=== PATIENT | male | born 1955 | race Caucasian/White ===

== ENCOUNTER 2018-09-12 15:34 | Inpatient (IN) ==
--- NOTE | 2018-09-12 16:52 | Emergency Department Note ---
Disposition Clinical Impression: Acute exacerbation of chronic obstructive airways disease Community acquired pneumonia Qualifiers: Laterality: right Lung location: lower lobe of lung Qualified Code(s): J18.1 - Lobar pneumonia, unspecified organism Disposition: Home, Self-Care Condition: Fair SOB HPI - General Chief Complaint: ED Shortness of Breath/Dyspnea Stated Complaint: difficulty in breathing Source: patient, EMS Mode of arrival: EMS Limitations: no limitations Nursing Notes Reviewed: Yes Vital Signs Reviewed: Yes - History of Present Illness Patient presents to the ED via EMS complaining of shortness of breath. States he has been short of breath for a few hours. He denies any cough or chest pain. No abdominal pain, nausea, vomiting or diarrhea. No fever or chills that he is aware of. He is a diabetic and states his sugars been running in the 200s. He wears 2 L of oxygen at home which she has been on for 3 years. He has a history of COPD along with CHF. He quit smoking 3 weeks ago. States he was smoking a half a pack per day since he was a teen. He denies any recent travel or sick contacts. States he has been using his Spiriva. He did not use his albuterol today. EMS gave 1 nebulizer treatment and one dose of Solu-Medrol prior to arrival. - Related Data Home Medications Medication Instructions Recorded Confirmed Carvedilol 3.125 mg PO BID 12/22/15 09/12/18 Gabapentin [Gralise] 600 mg PO BID 12/22/15 09/12/18 [place] Aspartate [Lithate] 300 mg PO BID 12/22/15 09/12/18 Morphine Sulfate SR (12 HR) [MS 60 mg PO Q12HR 12/22/15 09/12/18 Contin] Ranitidine Oral Soln [Zantac] 150 mg PO BID 12/22/15 09/12/18 Albuterol Sulfate [Proair Hfa] 1 puff IH BID 09/12/18 09/12/18 Escitalopram [Lexapro] 5 mg PO DAILY 09/12/18 09/12/18 Insulin ASPART [NovoLOG] 0 unit SQ TIDWM 09/12/18 09/12/18 Morphine Immed Rel [Morphine 30 mg PO BID 09/12/18 09/12/18 Sulfate] Previous Rx's Medication Instructions Recorded Tiotropium [place] [Spiriva 4 gm IH DAILY #1 mist.inhal 12/22/15 Respimat] Allergies Allergy/AdvReac Type Severity Reaction Status Date / Time No Known Allergies Allergy Verified 09/12/18 15:35 Constitutional: Denies: fever, chills, weakness, weight change Eyes: Denies: eye pain, eye discharge, vision change ENT ED: Denies: ear pain, throat pain, dental pain, hearing loss, epistaxis, congestion, dysphagia Cardiovascular: Denies: chest pain, palpitations, dyspnea on exertion, edema, syncope Respiratory: Reports: dyspnea. Denies: cough, wheezes, hemoptysis, stridor Gastrointestinal: Denies: abdominal pain, nausea, vomiting, diarrhea, constipation, hematemesis, melena, hematochezia Genitourinary: Denies: urgency, dysuria, frequency, hematuria Musculoskeletal: Denies: back pain, neck pain, arthralgia, myalgia Integumentary: Denies: rash, abrasion, lesions Neurological: Denies: headache, weakness, numbness, paresthesias, confusion, abnormal gait, vertigo Psychiatric: Denies: anxiety, depression, suicidal thoughts, homicidal thoughts, auditory hallucinations, visual hallucinations Endocrine: Denies: fatigue Hematological/Lymphatic: Denies: easy bleeding, easy bruising Allergic/Immunologic: Denies: facial swelling, urticaria Past Medical History - Past Medical History Medical history: Reports: asthma, atrial fibrillation, COPD, CVA, diabetes Surgical history: Reports: orthopedic, other (Left shoulder), other (Thorax left, intracranial hemorrhage) Psychiatric history: Reports: bipolar - Social History Smoking Status: Former smoker Smokeless Tobacco Status: No Alcohol use: Reports: none Drug use: Reports: none Physical Exam - General Limitations: no limitations General appearance: alert, in no apparent distress - Head Head exam: atraumatic, normocephalic, normal inspection - Eye Eye exam: Present: normal appearance, PERRL, EOMI - ENT ENT exam: normal exam, normal oropharynx, mucous membranes moist - Neck Neck exam: Present: normal inspection, full ROM, trachea midline - Chest Chest inspection: Present: normal inspection, symmetric chest wall rise - Respiratory Respiratory exam: Present: wheezes. Absent: respiratory distress - Expanded Respiratory Exam Location: wheezes: Left, Right, Upper, Lower (scattered) - Cardiovascular Cardiovascular exam: Present: regular rate, normal rhythm, normal heart sounds - Abdominal Exam Abdominal exam: Present: soft, Non-Tender. Absent: tenderness, distention, guarding, rebound, rigidity - Extremities Exam Extremities exam: Present: normal inspection, full ROM. Absent: tenderness, pedal edema - Back Exam Back exam: Present: normal inspection, full ROM. Absent: tenderness - Neurological Exam Neurological exam: Present: alert, oriented X3 - Psychiatric Psychiatric exam: Present: normal affect, normal mood - Skin Skin exam: Present: warm, dry, intact, normal color Course Course Narrative: Patient presents to the ED complaining of shortness of breath for a few hours with slight improvement after receiving steroids and nebulizer treatment by EMS. On arrival oxygen saturations 94% on his usual 2 L. Temperature is 99.1. Patient is frequently nodding off. Will check ABG for evidence of CO2 retention versus possible side effect of his narcotic pain medication. Will obtain chest x-ray and lab work. We will give an additional breathing treatment. - Reevaluation(s) Reevaluation #1: EKG did not show any ischemic changes. Chest x-ray shows nodularities in the right lung base that could represent infection. He does not have elevated white count other he does have elevated neutrophils and bands. BNP is slightly elevated at 146. Troponin and lactic acid are both normal. ABG shows a normal pH and normal PCO2 but PO2 is low at 58. Oxygen saturations remain in the mid 90s on 2 L. Discussed with patient recommendation for admission for IV antibiotics and he is in agreement. I spoke to the hospitalist on-call, Dr. Rodriguez who agreed to accept patient. Vital Signs Temperature 99.1 F 09/12/18 15:43 Pulse Rate 114 09/12/18 15:43 Respiratory Rate 28 09/12/18 15:43 Blood Pressure 108/71 09/12/18 15:43 O2 Sat by Pulse Oximetry 92 09/12/18 15:43 Temperature 97.7 F 09/13/18 03:59 Pulse Rate 80 09/13/18 03:59 Respiratory Rate 18 09/13/18 03:59 Blood Pressure 118/69 09/13/18 03:59 O2 Sat by Pulse Oximetry 99 09/13/18 03:59 Oxygen Delivery Oxygen Delivery Nasal Cannula Shortness of Breath/Dyspnea - Differential Diagnosis Likely: acute exacerbation of chronic obstructive airways disease, congestive heart failure, pneumonia - Medical Records Medical records reviewed: Yes I reviewed the patient's medical records. - Lab Data Lab results reviewed: Yes I reviewed the patient's lab results. Result diagrams: 09/12/18 17:25 09/12/18 17:25 Lab Results 09/12/18 09/12/18 09/12/18 Range/Units 17:25 17:25 17:25 WBC 10.6 (4.3-11.1) K/mcL RBC 4.53 (4.19-5.50) M/mcL Hgb 13.6 (12.9-16.9) g/dL Hct 43.4 (37.5-50.1) % MCV 95.8 (83.0-100.0) fL MCH 30.0 (28.0-33.3) pg MCHC 31.3 L (31.6-35.5) g/dL RDW 13.2 (11.5-14.5) % Plt Count 156 (140-400) K/mcL MPV 9.5 (9.4-12.4) fL Seg Neutrophils % 62.0 % Band Neutrophils % 34.0 H (0-4) % Lymphocytes % Test Not Performed Metamyelocytes % 4.0 H (0) % Neutrophils # 10.2 H (1.6-8.9) K/mcL Lymphocytes # WATER PLANT MAINTENANCE MECHANIC Platelet Estimate Normal (Normal) Sample Site ABG pH (7.32-7.45) pH Units ABG pCO2 (35-45) mmHg ABG pO2 (85-104) mmHg ABG HCO3 (21-27) mEq/L ABG Total CO2 (20-26) mEq/L ABG O2 Saturation (95-98) % ABG Base Excess (-2 to 3) mEq/L Ishan Test O2 Delivery Device Inspired O2 (1-15=lpm [id number]=%) Sodium 139 (136-145) mEq/L Potassium 3.3 L (3.5-5.1) mEq/L Chloride 106 (98-107) mEq/L Carbon Dioxide 27 (23-29) mEq/L BUN 15 (8-23) mg/dL Creatinine 0.77 (0.70-1.30) mg/dL Est GFR ( Amer) > 60 (> 60) Est GFR (Non-Af Amer) > 60 (> 60) BUN/Creatinine Ratio 19 (6-26) Glucose 185 H (70-105) mg/dL Calculated Osmolality 294 (280-300) Lactic Acid 1.9 (0.5-2.2) mmol/L Calcium 8.8 (8.6-10.3) mg/dL Troponin I < 0.03 (< 0.04) ng/mL B-Natriuretic Peptide (Less than 100) pg/mL 09/12/18 09/12/18 Range/Units 17:25 17:37 WBC (4.3-11.1) K/mcL RBC (4.19-5.50) M/mcL Hgb (12.9-16.9) g/dL Hct (37.5-50.1) % MCV (83.0-100.0) fL MCH (28.0-33.3) pg MCHC (31.6-35.5) g/dL RDW (11.5-14.5) % Plt Count (140-400) K/mcL MPV (9.4-12.4) fL Seg Neutrophils % % Band Neutrophils % (0-4) % Lymphocytes % Metamyelocytes % (0) % Neutrophils # (1.6-8.9) K/mcL Lymphocytes # Platelet Estimate (Normal) Sample Site L Radial ABG pH 7.37 (7.32-7.45) pH Units ABG pCO2 45 (35-45) mmHg ABG pO2 58 L (85-104) mmHg ABG HCO3 26 (21-27) mEq/L ABG Total CO2 27 H (20-26) mEq/L ABG O2 Saturation 89 L (95-98) % ABG Base Excess 0 (-2 to 3) mEq/L Ishan Test Positive O2 Delivery Device Cannula Inspired O2 2.0 (1-15=lpm [id number]=%) Sodium (136-145) mEq/L Potassium (3.5-5.1) mEq/L Chloride (98-107) mEq/L Carbon Dioxide (23-29) mEq/L BUN (8-23) mg/dL Creatinine (0.70-1.30) mg/dL Est GFR ( Amer) (> 60) Est GFR (Non-Af Amer) (> 60) BUN/Creatinine Ratio (6-26) Glucose (70-105) mg/dL Calculated Osmolality (280-300) Lactic Acid (0.5-2.2) mmol/L Calcium (8.6-10.3) mg/dL Troponin I (< 0.04) ng/mL B-Natriuretic Peptide 146 H (Less than 100) pg/mL - Radiology Data Radiology results reviewed: Yes I reviewed the patient's radiology results. ITS Impressions Chest X-Ray 09/12/18 17:02 IMPRESSION: Questionable reticulonodular airspace disease within the right lung base, likely infectious or inflammatory. D/ / Maribell Kamara Cha, MD / Maribell Kamara Cha, MD Interpreting Provider: Maribell Kamara Cha, MD - EKG Data EKG attestation: Yes I reviewed and interpreted this EKG. EKG shows normal: Reports: sinus rhythm Rate: Reports: tachycardia (rate 109) Rhythm: Reports: NSR [place]/QRS: Reports: normal, RBBB When compared to previous EKG there are: previous EKG unavailable Interpretation: Reports: no acute changes
[2018-09-12] MEDS ORDERED: 0.9 % Sodium Chloride 500 ML IVC ONE (17:03)
[2018-09-12] MEDS ORDERED: Ipratropium/Albuterol Neb 3 ML IH ONE (17:13)
[2018-09-12 17:40] LABS: Hematocrit 43.4 % (37.5-50.1); Hemoglobin 13.6 g/dL (12.9-16.9); Mean Corpuscular HGB Conc 31.3 g/dL (31.6-35.5); Mean Corpuscular Volume 95.8 fL (83.0-100.0); Mean Platelet Volume 9.5 fL (9.4-12.4); Platelet Count 156 K/mcL (140-400); Red Blood Count 4.53 M/mcL (4.19-5.50); Red Cell Distribution Width 13.2 % (11.5-14.5)
[2018-09-12 17:40] LABS: ABG Base Excess 0 mEq/L (-2 to 3); ABG HCO3 26 mEq/L (21-27); ABG Oxygen Saturation 89 % (95-98); ABG PCO2 45 mmHg (35-45); ABG PH 7.37 pH Units (7.32-7.45); ABG PO2 58 mmHg (85-104); ABG TCO2 27 mEq/L (20-26)
[2018-09-12 17:55] LABS: BUN/Creatinine Ratio 19 (6-26); Blood Urea Nitrogen 15 mg/dL (8-23); Calcium 8.8 mg/dL (8.6-10.3); Carbon Dioxide 27 mEq/L (23-29); Chloride 106 mEq/L (98-107); Glucose 185 mg/dL (70-105); Osmolality,Calculated 294 (280-300); Potassium 3.3 mEq/L (3.5-5.1); Sodium 139 mEq/L (136-145); eGFR For Non-African Americans > 60 (> 60)
[2018-09-12 17:59] LABS: Troponin I < 0.03 ng/mL (< 0.04)
[2018-09-12] MEDS ORDERED: Azithromycin 500 MG in D5% in Water 250 ML IVPB ONE (18:25)
[2018-09-12] MEDS ORDERED: cefTRIAXone 1,000 MG in 0.9 % Sodium Chloride Mini Bag 100 ML IVPB ONE (18:26)
[2018-09-12 18:56] LABS: Neutrophils # 10.2 K/mcL (1.6-8.9); Platelet Estimate Normal (Normal)
[2018-09-12] MEDS ORDERED: Naloxone 0.4 MG/ML INJ IVP PRN ×2 (19:27→20:33)
[2018-09-12] MEDS ORDERED: D5% in Water 1,000 ML IVC PRN ×2 (19:37→20:33)
[2018-09-12] MEDS ORDERED: *HR* Dextrose 50 % in Water (Vial) 50 ML VIAL IVP PRN ×2 (19:37→20:33)
[2018-09-12] MEDS ORDERED: Dextrose Gel 15 GM/37.5 ML TUBE PO PRN ×4 (19:37→20:33)
[2018-09-12] MEDS: Ipratropium/Albuterol Neb 3 ML IH SCH ×2 (20:02→20:08)
[2018-09-12] MEDS: *HR* Morphine Soln 10 MG/5 ML UDC PO SCH (21:00)
[2018-09-12] MEDS ORDERED: Insulin LISPRO 300 UNITS/3 ML VIAL SQ SCH (21:00)
[2018-09-12] MEDS: Lithium Carbonate 300 MG CAPSULE PO SCH (22:48)
[2018-09-12] MEDS: Gabapentin 300 MG CAPSULE PO SCH (22:48)
[2018-09-12] MEDS: Insulin LISPRO 300 UNITS/3 ML VIAL SQ SCH (22:50)
[2018-09-13] MEDS: Ipratropium/Albuterol Neb 3 ML IH SCH ×3 (01:02→07:48)
[2018-09-13] MEDS: *HR* Morphine Sulfate SR (12 HR) 30 MG TABLET.ER PO SCH ×2 (05:22→17:03)
[2018-09-13] MEDS ORDERED: Insulin LISPRO 300 UNITS/3 ML VIAL SQ SCH (07:30)
[2018-09-13] MEDS: Ondansetron 4 MG/2 ML VIAL IVP PRN ×2 (07:57→17:03)
[2018-09-13] MEDS: Lithium Carbonate 300 MG CAPSULE PO SCH ×2 (07:58→20:28)
[2018-09-13] MEDS: Insulin LISPRO 300 UNITS/3 ML VIAL SQ SCH ×4 (07:59→21:59)
[2018-09-13] MEDS: Gabapentin 300 MG CAPSULE PO SCH ×2 (07:59→20:27)
[2018-09-13] MEDS: Famotidine 20 MG TABLET PO SCH ×3 (08:04→21:10)
[2018-09-13] MEDS ORDERED: TIOTROPIUM BROMIDE 4 GM IH SCH (09:00)
--- NOTE | 2018-09-13 10:49 | Internal Med History&Physical ---
Date of Encounter: 09/13/18 Time of Encounter: 10:00 Assessment and Plan (1) Acute gastroenteritis Current visit: Yes Status: Acute He will be given IV fluids. Antiemetics will be given as needed. (2) Hypokalemia Current visit: Yes Status: Acute Potassium level was 3.3 in emergency room. Supplemental potassium will be given. (3) DM type 2 (diabetes mellitus, type 2) Current visit: Yes Status: Chronic Hemoglobin A1c will be checked in a.m. Qualifiers: Diabetes mellitus terminal operations supervisor insulin use: with fpc use Diabetes mellitus complication status: without complication Qualified Code(s): E11.9 - Type 2 diabetes mellitus without complications; Z79.4 - longterm (current) use of insulin (4) Acute exacerbation of chronic obstructive airways disease Current visit: Yes Status: Acute Possibly superimposed pneumonia. He was given IV Rocephin and Zithromax in emergency room. These will be continued with lactobacillus. Internal Medicine - H&P: HPI Chief complaint: Vomiting, diarrhea, dyspnea Admitted From: Emergency Dept Plans for Post Hospital Care: Home History of present illness: Mr. Heaton is a 63 year old male who came to emergency room stating he had onset of dyspnea, nonproductive cough, and vomiting with diarrhea the previous day. There was no significant pain other than chronic low back pain. He came to emergency room and was evaluated and was felt to have exacerbation of COPD. He was admitted to [facility] floor for ongoing care needs. Past Med Surg Social Fam HX - Past Medical History Medical history: asthma, atrial fibrillation, COPD, CVA, diabetes Psychiatric history: bipolar - Past Surgical History Surgical History: orthopedic, other (Left shoulder), other (Thorax left, in tracranial hemorrhage) Additional surgical history: left shoulder sx. left pneumothorax. brain bleed - Social History Smoking Status: Former smoker Smokeless Tobacco Status: No Alcohol use: none Drug use: none Internal Medicine - H&P: Meds Carvedilol 3.125 mg PO BID 12/22/15 [History] Gabapentin [Gralise] 600 mg PO BID 12/22/15 [History] [place] Aspartate [Lithate] 300 mg PO BID 12/22/15 [History] Morphine Sulfate SR (12 HR) [MS Contin] 60 mg PO Q12HR 12/22/15 [History] Ranitidine Oral Soln [Zantac] 150 mg PO BID 12/22/15 [History] Tiotropium [place] [Spiriva Respimat] 4 gm IH DAILY #1 mist.inhal 12/22/15 [Rx] Albuterol Sulfate [Proair Hfa] 1 puff IH BID 09/12/18 [History] Escitalopram [Lexapro] 5 mg PO DAILY 09/12/18 [History] Insulin ASPART [NovoLOG] 0 unit SQ TIDWM 09/12/18 [History] Morphine Immed Rel [Morphine Sulfate] 30 mg PO BID 09/12/18 [History] Allergy/AdvReac Type Severity Reaction Status Date / Time No Known Allergies Allergy Verified 09/12/18 15:35 All Systems PM: A 10-system review of systems was performed and is negative for pertinent findings except as documented above in the HPI. Review of systems: Gen.: He states his weight has been stable for several months Cardiovascular: He reports history of atrial fibrillation with an ablation procedure approximately 2012 in [place]. He states he generally maintains NSR if he takes medication as prescribed. He denies hypertension [place] heart failure DVT or pulmonary embolus Respiratory: He smoked from age [age]. He claims a diagnosis of COPD and uses supplemental oxygen at home GI: He denies disorders of his liver gallbladder or exocrine pancreas : He denies hematuria dysuria or kidney stones Neurologic: He denies large distribution strokes or seizures. Endocrine: He was diagnosed with DM 2 approximately 2013. He denies thyroid disease or hyperlipidemia Hematology/oncology: He denies blood disorders cancers or anemia Psychiatric: He denies anxiety depression or other mental health issues [place] skeletal: He has DJD but denies gout or other bone joint or muscle disorders. - Constitutional Vitals: Temp Pulse Resp BP Pulse Ox 98.3 F 67 18 131/76 99 09/13/18 07:16 09/13/18 07:16 09/13/18 07:49 09/13/18 07:16 09/13/18 07:49 Exam: Gen.: He is a well-developed well-nourished male resting comfortably in bed who appears in no acute distress HEENT: Head is atraumatic and normocephalic. Eyes: EOMI. There is no scleral icterus. Mouth: Mucosa is moist. Neck: Supple and nontender. There is no thyromegaly or adenopathy noted. Heart: Regular without murmurs gallops or ectopics Lungs: No wheezes or crackles are heard. Abdomen: Soft and nontender. Bowel sounds are diminished. Exam is limited because he is in a seated position in bed. Extremities: There is no cyanosis edema or clubbing noted. Dorsalis pedis and posttibial pulses are trace palpable bilaterally. Neurologic: Mental status: He is is minimally talkative and complaints of nausea. He answers questions with very short answers. Cranial nerves: Smile is symmetric. Forehead wrinkles bilaterally. Tongue protrudes midline. EOMI. Motor: There are no focal deficits to gross exam. No further neurologic testing is attempted. Skin: Warm and dry Internal Med - H&P Results - Labs CBC & Chem 7: 09/12/18 17:25 09/12/18 17:25 Labs: Short CBC 09/12/18 Range/Units 17:25 WBC 10.6 (4.3-11.1) K/mcL Hgb 13.6 (12.9-16.9) g/dL Hct 43.4 (37.5-50.1) % Plt Count 156 (140-400) K/mcL Neutrophils # 10.2 H (1.6-8.9) K/mcL BMP 09/12/18 17:25 Sodium 139 Potassium 3.3 L Chloride 106 Carbon Dioxide 27 BUN 15 Creatinine 0.77 Glucose 185 H Calcium 8.8 Cardiac Enzymes 09/12/18 Range/Units 17:25 Troponin I < 0.03 (< 0.04) ng/mL - ABG Interpretation ABG results: 09/12/18 17:37 ABG pH 7.37 ABG pCO2 45 ABG pO2 58 L ABG HCO3 26 ABG Total CO2 27 H ABG O2 Saturation 89 L ABG Base Excess 0 - Impressions ITS Impressions Chest X-Ray 09/12/18 17:02 IMPRESSION: Questionable reticulonodular airspace disease within the right lung base, likely infectious or inflammatory. D/ / Maribell Kamara Cha, MD / Maribell Kamara Cha, MD Interpreting Provider: Maribell Kamara Cha, MD - VTE Reasons for not Prescribing Prophylaxis: Treatment not Indicated - Low risk for VTE
[2018-09-13 10:58] LABS: Basophils # 0.1 K/mcL (0.0-0.2); Basophils % 0.2 %; Hematocrit 38.8 % (37.5-50.1); Hemoglobin 12.4 g/dL (12.9-16.9); Immature Granulocytes % 1.6 % (0-4); Lymphocytes # 0.9 K/mcL (0.6-4.6); Lymphocytes % 3.8 %; Mean Corpuscular Hemoglobin 30.7 pg (28.0-33.3); Mean Platelet Volume 10.1 fL (9.4-12.4); Monocytes # 0.9 K/mcL (0.0-1.3); Monocytes % 3.7 %; Neutrophils # 21.3 K/mcL (1.6-8.9); Platelet Count 179 K/mcL (140-400); Red Blood Count 4.04 M/mcL (4.19-5.50); Red Cell Distribution Width 13.4 % (11.5-14.5); Segmented Neutrophils % 90.7 %
[2018-09-13] MEDS: *HR* Morphine Soln 10 MG/5 ML UDC PO SCH ×2 (11:02→20:26)
[2018-09-13 11:29] LABS: Platelet Estimate Normal (Normal)
[2018-09-13 11:30] LABS: Alanine Aminotransferase 39 Units/L (7-52); Albumin 3.3 g/dL (3.5-5.7); Alkaline Phosphatase 64 Units/L (34-104); Aspartate Amino Transferase 38 Units/L (13-39); BUN/Creatinine Ratio 26 (6-26); Bilirubin,Total 0.3 mg/dL (0.3-1.0); Blood Urea Nitrogen 21 mg/dL (8-23); Calcium 9.2 mg/dL (8.6-10.3); Carbon Dioxide 32 mEq/L (23-29); Chloride 105 mEq/L (98-107); Globulin 3.4 g/dL (2.4-3.5); Glucose 193 mg/dL (70-105); Osmolality,Calculated 302 (280-300); Sodium 142 mEq/L (136-145); Total Protein 6.7 g/dL (6.4-8.9); eGFR For Non-African Americans > 60 (> 60)
[2018-09-13] MEDS: 0.45 % Sodium Chloride w/KCl 20 MEQ/1,000 ML MLS IVC SCH ×2 (11:40→23:30)
[2018-09-13] MEDS: cefTRIAXone 1,000 MG in Water for inj. (sterile) 20 ML 10 ML IVP SCH (17:04)
[2018-09-13] MEDS: Azithromycin 500 MG in D5% in Water 250 ML IVPB SCH (18:46)
[2018-09-13] MEDS: Lactobacillus 1 EACH CAP.SPRINK PO SCH (20:27)
[2018-09-14] MEDS: *HR* Enoxaparin 40 MG/0.4 ML SYRINGE SQ SCH (05:44)
[2018-09-14] MEDS: *HR* Morphine Sulfate SR (12 HR) 30 MG TABLET.ER PO SCH ×2 (05:45→17:17)
[2018-09-14 06:40] LABS: Basophils % 0.3 %; Eosinophils # 0.1 K/mcL (0.0-0.6); Eosinophils % 0.8 %; Hematocrit 36.7 % (37.5-50.1); Hemoglobin 11.3 g/dL (12.9-16.9); Immature Granulocytes % 1.1 % (0-4); Lymphocytes # 2.6 K/mcL (0.6-4.6); Lymphocytes % 18.3 %; Mean Corpuscular HGB Conc 30.8 g/dL (31.6-35.5); Mean Corpuscular Hemoglobin 29.7 pg (28.0-33.3); Mean Corpuscular Volume 96.3 fL (83.0-100.0); Mean Platelet Volume 10.9 fL (9.4-12.4); Monocytes # 1.3 K/mcL (0.0-1.3); Monocytes % 8.8 %; Neutrophils # 10.2 K/mcL (1.6-8.9); Platelet Count 190 K/mcL (140-400); Red Blood Count 3.81 M/mcL (4.19-5.50); Red Cell Distribution Width 13.9 % (11.5-14.5); Segmented Neutrophils % 70.7 %
[2018-09-14 06:59] LABS: BUN/Creatinine Ratio 26 (6-26); Blood Urea Nitrogen 17 mg/dL (8-23); Calcium 8.6 mg/dL (8.6-10.3); Carbon Dioxide 29 mEq/L (23-29); Chloride 104 mEq/L (98-107); Glucose 121 mg/dL (70-105); Magnesium 2.1 mg/dL (1.6-2.6); Osmolality,Calculated 285 (280-300); Sodium 136 mEq/L (136-145); eGFR For Non-African Americans > 60 (> 60)
[2018-09-14] MEDS: Lithium Carbonate 300 MG CAPSULE PO SCH ×2 (08:23→21:00)
[2018-09-14] MEDS: Lactobacillus 1 EACH CAP.SPRINK PO SCH ×2 (08:23→21:00)
[2018-09-14] MEDS: Gabapentin 300 MG CAPSULE PO SCH ×2 (08:23→21:00)
[2018-09-14] MEDS: Famotidine 20 MG TABLET PO SCH ×2 (08:24→16:54)
[2018-09-14] MEDS: Tiotropium 18 MCG inhalation IH SCH (09:46)
[2018-09-14] MEDS: *HR* Morphine Soln 10 MG/5 ML UDC PO SCH ×2 (09:48→21:00)
[2018-09-14] MEDS: Insulin LISPRO 300 UNITS/3 ML VIAL SQ SCH ×4 (09:48→21:01)
[2018-09-14] MEDS: 0.45 % Sodium Chloride w/KCl 20 MEQ/1,000 ML MLS IVC SCH (09:52)
--- NOTE | 2018-09-14 09:57 | Internal Med Progress Note ---
Date of Encounter: 09/14/18 Time of Encounter: 09:45 - Assessment and plan (1) Acute gastroenteritis Current Visit: Yes Status: Acute Assessment and plan: September 14. Continue IV fluids and prn anti-emetics. (2) Hypokalemia Current Visit: Yes Status: Acute Assessment and plan: September 14. Potassium normalized to 5.0. (3) DM type 2 (diabetes mellitus, type 2) Current Visit: Yes Status: Chronic Assessment and plan: September 14. Hemoglobin A1c has been ordered. Qualifiers: Diabetes mellitus terminal make up operator insulin use: with longterm use Diabetes mellitus complication status: without complication Qualified Code(s): E11.9 - Type 2 diabetes mellitus without complications; Z79.4 - intermodal dispatcher (current) use of insulin (4) Acute exacerbation of chronic obstructive airways disease Current Visit: Yes Status: Acute Assessment and plan: September 14. Clinically improved. WBC has decreased to 14.4 K from 23.5 K yesterday. Continue IV Rocephin and Zithromax with lactobacillus. (5) Anemia Current Visit: Yes Status: Acute Assessment and plan: September 14. Hemoglobin has decreased to 11.3 with IV fluid administration. Check CBC and anemia testing in a.m. Qualifiers: Anemia type: unspecified type Qualified Code(s): D64.9 - Anemia, unspecified - Subjective Interval history: September 14. He has no new complaints and feels better. He states his dyspnea has lessened. He tolerated breakfast and has not vomited. - Constitutional Vitals: Temp Pulse Resp BP Pulse Ox 98.4 F 63 16 93/60 98 09/14/18 06:35 09/14/18 06:35 09/14/18 06:35 09/14/18 06:35 09/14/18 06:35 Exam: He is resting comfortably in bed and appears in no acute distress. His affect is overall cheerful. I reviewed his medications and lab results. Internal Medicine: Result - Labs CBC & Chem 7: 09/14/18 05:49 09/14/18 05:49 Labs: Short CBC 09/13/18 09/14/18 Range/Units 10:50 05:49 WBC 23.5 H D 14.4 H (4.3-11.1) K/mcL Hgb 12.4 L 11.3 L (12.9-16.9) g/dL Hct 38.8 36.7 L (37.5-50.1) % Plt Count 179 190 (140-400) K/mcL Neutrophils # 21.3 H 10.2 H (1.6-8.9) K/mcL BMP 09/13/18 09/14/18 10:50 05:49 Sodium 142 136 Potassium 5.0 D 5.0 Chloride 105 104 Carbon Dioxide 32 H 29 BUN 21 17 Creatinine 0.82 0.65 L Glucose 193 H 121 H Calcium 9.2 8.6 Liver Function 09/13/18 Range/Units 10:50 Total Bilirubin 0.3 (0.3-1.0) mg/dL AST 38 (13-39) Units/L ALT 39 (7-52) Units/L Alkaline Phosphatase 64 (34-104) Units/L Albumin 3.3 L (3.5-5.7) g/dL - ABG Interpretation ABG results: ABG ABG pH 7.37 pH Units (7.32-7.45) 09/12/18 17:37 ABG pCO2 45 mmHg (35-45) 09/12/18 17:37 ABG pO2 58 mmHg (85-104) L 09/12/18 17:37 ABG O2 Saturation 89 % (95-98) L 09/12/18 17:37 - VTE Reasons for not Prescribing Prophylaxis: Treatment not Indicated - Low risk for VTE Consult Discharge Plan - Plan Referrals: NONE,PCP [Primary Care Provider] - 1 week
[2018-09-14 13:44] LABS: Estimated Average Glucose 151 mg/dl; Hemoglobin A1C 6.9 %
[2018-09-14] MEDS: cefTRIAXone 1,000 MG in Water for inj. (sterile) 20 ML 10 ML IVP SCH (17:17)
[2018-09-14] MEDS: Azithromycin 500 MG in D5% in Water 250 ML IVPB SCH (17:51)
[2018-09-15 05:58] LABS: Basophils # 0.1 K/mcL (0.0-0.2); Basophils % 1.2 %; Eosinophils # 0.3 K/mcL (0.0-0.6); Eosinophils % 2.9 %; Hematocrit 37.9 % (37.5-50.1); Hemoglobin 11.8 g/dL (12.9-16.9); Immature Granulocytes % 2.2 % (0-4); Lymphocytes # 2.6 K/mcL (0.6-4.6); Lymphocytes % 28.6 %; Mean Corpuscular HGB Conc 31.1 g/dL (31.6-35.5); Mean Corpuscular Hemoglobin 30.2 pg (28.0-33.3); Mean Corpuscular Volume 96.9 fL (83.0-100.0); Mean Platelet Volume 10.9 fL (9.4-12.4); Monocytes # 0.9 K/mcL (0.0-1.3); Monocytes % 9.7 %; Neutrophils # 5.1 K/mcL (1.6-8.9); Platelet Count 191 K/mcL (140-400); Red Blood Count 3.91 M/mcL (4.19-5.50); Red Cell Distribution Width 13.3 % (11.5-14.5); Segmented Neutrophils % 55.4 %
[2018-09-15 06:15] LABS: BUN/Creatinine Ratio 26 (6-26); Blood Urea Nitrogen 19 mg/dL (8-23); Calcium 8.6 mg/dL (8.6-10.3); Carbon Dioxide 33 mEq/L (23-29); Chloride 103 mEq/L (98-107); Glucose 82 mg/dL (70-105); Osmolality,Calculated 287 (280-300); Potassium 4.8 mEq/L (3.5-5.1); Sodium 138 mEq/L (136-145); eGFR For Non-African Americans > 60 (> 60)
[2018-09-15] MEDS: *HR* Enoxaparin 40 MG/0.4 ML SYRINGE SQ SCH (06:27)
[2018-09-15] MEDS: *HR* Morphine Sulfate SR (12 HR) 30 MG TABLET.ER PO SCH (06:27)
[2018-09-15] MEDS: Famotidine 20 MG TABLET PO SCH (06:28)
[2018-09-15 08:50] LABS: % Iron Saturation 32 % (20-55); Iron 105 mcg/dL (65-175); Transferrin 235 mg/dL (203-362)
[2018-09-15 09:08] LABS: Ferritin 254 ng/mL (20-250)
[2018-09-15] MEDS: Lactobacillus 1 EACH CAP.SPRINK PO SCH (09:13)
[2018-09-15] MEDS: Lithium Carbonate 300 MG CAPSULE PO SCH (09:13)
[2018-09-15] MEDS: Insulin LISPRO 300 UNITS/3 ML VIAL SQ SCH (09:14)
[2018-09-15] MEDS: *HR* Morphine Soln 10 MG/5 ML UDC PO SCH (09:14)
[2018-09-15] MEDS: Gabapentin 300 MG CAPSULE PO SCH (09:14)
[2018-09-15 09:15] LABS: Folate 9.2 ng/mL (3.0-16.0)
--- NOTE | 2018-09-15 09:16 | Discharge Summary ---
Orders not resulted at time of discharge: Pending orders 09/12/18 19:30 Culture,Blood [BC] Stat 09/15/18 05:11 Folate AM 0400 Vitamin B12 AM 0400 Date of Encounter: 09/15/18 Time of Encounter: 09:05 - Discharge Diagnosis (1) Acute gastroenteritis Priority: Primary Status: Acute (2) Hypokalemia Priority: Secondary Status: Acute (3) DM type 2 (diabetes mellitus, type 2) Priority: Secondary Status: Chronic Qualifiers: Diabetes mellitus longterm insulin use: with intermediate card tender use Diabetes mellitus complication status: without complication Qualified Code(s): E11.9 - Type 2 diabetes mellitus without complications; Z79.4 - FDC (current) use of insulin (4) Acute exacerbation of chronic obstructive airways disease Priority: Secondary Status: Acute (5) Anemia Priority: Secondary Status: Acute Qualifiers: Anemia type: unspecified type Qualified Code(s): D64.9 - Anemia, unspecified Hospital course: Mr. Heaton is a 63 year old male who came to emergency room stating he had onset of dyspnea, nonproductive cough, and vomiting with diarrhea the previous day. There was no significant pain other than chronic low back pain. He came to emergency room and was evaluated and was felt to have exacerbation of COPD. He was admitted to [facility] floor for ongoing care needs. Initial orders were written by the emergency room physician. I saw him on September 13 and performed the history and physical. He was given IV fluids. Antiemetics were used as needed. His vomiting and diarrhea gradually subsided. He was able to tolerate adequate amounts of oral food and fluid. He was started empirically on Rocephin and Zithromax for possible pneumonia. WBC shona to 23.5 on September 13 but had normalized with resolution of left shift by September 15. When I saw him on September 15 he felt stable for discharge home. He remained afebrile during his hospital stay. He will continue with oral antibiotic and probiotic for 2 additional days at discharge. [facility]. - Time Spent with Patient Total time spent providing and/or coordinating discharge services: - Discharge Medications Prescriptions: New Cefuroxime PO [Ceftin] 500 mg PO Q12HR #4 tablet Azithromycin [Zithromax] 250 mg PO DAILY #2 tablet Lactobacillus [Culturelle] 1 each PO BID #4 cap.sprink Continue Ranitidine Oral Soln [Zantac] 150 mg PO BID [place] Aspartate [Lithate] 300 mg PO BID Morphine Sulfate SR (12 HR) [MS Contin] 60 mg PO Q12HR Gabapentin [Gralise] 600 mg PO BID Carvedilol 3.125 mg PO BID Tiotropium [place] [Spiriva Respimat] 4 gm IH DAILY #1 mist.inhal Escitalopram [Lexapro] 5 mg PO DAILY Insulin ASPART [NovoLOG] 0 unit SQ TIDWM Albuterol Sulfate [Proair Hfa] 1 puff IH BID Morphine Immed Rel [Morphine Sulfate] 30 mg PO BID Home Medications: Carvedilol 3.125 mg PO BID 12/22/15 [History] Gabapentin [Gralise] 600 mg PO BID 12/22/15 [History] [place] Aspartate [Lithate] 300 mg PO BID 12/22/15 [History] Morphine Sulfate SR (12 HR) [MS Contin] 60 mg PO Q12HR 12/22/15 [History] Ranitidine Oral Soln [Zantac] 150 mg PO BID 12/22/15 [History] Tiotropium [place] [Spiriva Respimat] 4 gm IH DAILY #1 mist.inhal 12/22/15 [Rx] Albuterol Sulfate [Proair Hfa] 1 puff IH BID 09/12/18 [History] Escitalopram [Lexapro] 5 mg PO DAILY 09/12/18 [History] Insulin ASPART [NovoLOG] 0 unit SQ TIDWM 09/12/18 [History] Morphine Immed Rel [Morphine Sulfate] 30 mg PO BID 09/12/18 [History] Azithromycin [Zithromax] 250 mg PO DAILY #2 tablet 09/15/18 [Rx] Cefuroxime PO [Ceftin] 500 mg PO Q12HR #4 tablet 09/15/18 [Rx] Lactobacillus [Culturelle] 1 each PO BID #4 cap.sprink 09/15/18 [Rx] Allergies/Adverse Reactions: Allergy/AdvReac Type Severity Reaction Status Date / Time No Known Allergies Allergy Verified 09/12/18 15:35 Date of admission: 09/14/18 12:17 [facility] care physician: [facility] - Constitutional Vitals: Temp Pulse Resp BP Pulse Ox 97.8 F 59 16 100/66 97 09/15/18 06:59 09/15/18 06:59 09/15/18 06:59 09/15/18 06:59 09/15/18 06:59 - Patient Status Disposition: Home, Self-Care Condition: Fair - Discharge Instructions Follow Up With: NONE,PCP [Primary Care Provider] - 1 week - Diet and Activity Activity: resume usual activities as tolerated, wear oxygen at all times Diet: advance to your usual diet - VTE Reasons for not Prescribing Prophylaxis: Treatment not Indicated - Low risk for VTE
[2018-09-15] MEDS: Tiotropium 18 MCG inhalation IH SCH (09:57)
[2018-09-15 10:54] VITALS: BP 115/77
--- NOTE | 2018-09-15 11:43 | Electrocardiograph Report ---
[place] [id number] Test Date: 2018-09-12 Pat Name: Pierre Heaton Department: EDP-11 Room: [facility] Gender: M A/C Tech: : 1955 Requested By: Imani Kenney Order Number: [id number] Reading MD: Stewart Cevallos Measurements Intervals [place] Rate: 109 P: 93 ME: 121 QRS: 91 QRSD: 129 T: 59 QT: 330 QTc: 445 Interpretive Statements Sinus tachycardia RBBB Electronically Signed On 09-15-2018 11:41:27 EDT by Stewart Cevallos
== END 2018-09-15 17:00 | disposition home or self-care (01) | DRG 391 ==
LOC: EMEROOPIK 15:34 → INPPIK 15:34
PROVIDERS: ADMIT Internal Medicine; ATTEND Internal Medicine

== ENCOUNTER 2019-01-13 20:56 | Inpatient (IN) ==
[2019-01-13] MEDS ORDERED: methylPREDNISolone 125 MG/2 ML VIAL IVP ONE (21:11)
[2019-01-13] MEDS ORDERED: Ipratropium/Albuterol Neb 3 ML IH ONE (21:11)
[2019-01-13] MEDS ORDERED: 0.9 % Sodium Chloride 1,000 ML IVC SCH (21:15)
--- NOTE | 2019-01-13 21:17 | Emergency Department Note ---
Disposition Clinical Impression: COPD (chronic obstructive pulmonary disease) Disposition: Admitted As Inpatient Condition: Fair Forms: ED Satisfaction Letter Time of Disposition: 22:31 SOB HPI - General Chief Complaint: ED Shortness of Breath/Dyspnea Stated Complaint: Difficulty breathing Time Seen by Provider: 01/13/19 21:00 Source: patient, EMS Mode of arrival: ambulatory Limitations: physical limitation Nursing Notes Reviewed: Yes Vital Signs Reviewed: Yes - History of Present Illness Pt Subjective Complaint: shortness of breath Onset (ago): day(s) Context: recent illness, occurred during exertion, other (progressively worsening) Severity: moderate, severe Consistency/Duration: gradually worsening Improves with: oxygen, bronchodilators Worsens with: nothing Known history of: COPD Associated symptoms: Reports: chest pain, pain with inspiration, wheezing. Denies: cough, sputum production, orthopnea, lower extremity pain, polyuria, polydipsia, parasthesias, palpitations, hemoptysis, diaphoresis, nausea/vomiting, syncope, abdominal pain, rash, sense of impending doom Treatment prior to arrival: oxygen, bronchodilator Cough present: Yes Cough Description: Involuntary, Weak, Bronchospastic Cough Frequency: Intermittent Sputum production: Yes Sputum Amount: Scant Sputum Color: Green - Related Data Home Medications Medication Instructions Recorded Confirmed Carvedilol 3.125 mg PO BID 12/22/15 10/17/18 [place] Aspartate [Lithate] 300 mg PO BID 12/22/15 10/17/18 Morphine Sulfate ER (12 HR) [MS 60 mg PO Q12HR 12/22/15 10/16/18 Contin] Ranitidine Oral Soln [Zantac] 150 mg PO BID 12/22/15 10/17/18 Insulin ASPART [NovoLOG] 0 unit SQ TIDWM 09/12/18 10/17/18 Insulin DETEMIR [Levemir Flextouch] 30 unit SQ QPM 09/28/18 10/17/18 Albuterol Sulfate [Ventolin Hfa] 2 puff IH Q6H PRN 10/16/18 10/16/18 Gabapentin 600 mg PO QID 10/16/18 10/16/18 Previous Rx's Medication Instructions Recorded Tiotropium [place] [Spiriva 4 gm IH DAILY #1 mist.inhal 12/22/15 Respimat] levoFLOXacin [Levaquin] 750 mg PO DAILY #3 tablet 10/18/18 predniSONE [PredniSONE] 40 mg PO DAILY #1 tablet 10/18/18 Allergies Allergy/AdvReac Type Severity Reaction Status Date / Time No Known Allergies Allergy Verified 09/12/18 15:35 All systems ED: reviewed and negative except as stated. Review of Systems: As Per HPI Constitutional: Reports: weakness. Denies: fever, chills Eyes: Denies: eye pain, eye discharge ENT ED: Denies: ear pain, throat pain Cardiovascular: Reports: dyspnea on exertion. Denies: chest pain, palpitations Respiratory: Reports: dyspnea, wheezes. Denies: cough Gastrointestinal: Denies: abdominal pain, nausea Genitourinary: Denies: urgency, dysuria Musculoskeletal: Denies: back pain, neck pain Integumentary: Denies: rash, nipple discharge Neurological: Denies: headache Psychiatric: Denies: anxiety, depression Endocrine: Denies: fatigue, heat or cold intolerance Hematological/Lymphatic: Denies: easy bleeding Allergic/Immunologic: Denies: facial swelling Past Medical History - Past Medical History Medical history: Reports: asthma, atrial fibrillation, COPD, CVA, diabetes, hepatitis Surgical history: Reports: orthopedic, other Psychiatric history: Reports: bipolar - Social History Smoking Status: Former smoker Smokeless Tobacco Status: No Alcohol use: Reports: none Drug use: Reports: unknown, prescription drug abuse Physical Exam - General Limitations: physical limitation General appearance: alert, anxious - Head Head exam: atraumatic, normocephalic, normal inspection - Eye Eye exam: Present: normal appearance, PERRL, EOMI - ENT ENT exam: normal exam, normal oropharynx, mucous membranes moist, TM's normal bilaterally, normal external ear exam - Neck Neck exam: Present: normal inspection, full ROM, trachea midline - Chest Chest inspection: Present: normal inspection, symmetric chest wall rise - Respiratory Respiratory exam: Present: wheezes - Cardiovascular Cardiovascular exam: Present: tachycardia - Abdominal Exam Abdominal exam: Present: soft, Non-Tender, normal bowel sounds. Absent: mass, pulsatile mass - Expanded Upper Extremity Exam Shoulder exam: Present: normal inspection, full ROM Arm exam: Present: normal inspection, full ROM Elbow exam: Present: normal inspection, full ROM Forearm/Wrist exam: Present: normal inspection, full ROM Hand exam: Present: normal inspection, full ROM Vascular exam: Normal: capillary refill, radial pulse - Expanded Lower Extremity Exam Hip/Pelvis exam: Present: normal inspection, full ROM Upper leg exam: Present: normal inspection, full ROM Knee exam: Present: normal inspection, full ROM Lower leg exam: Present: normal inspection, full ROM Ankle exam: Present: normal inspection, full ROM Foot/toe exam: Present: normal inspection, full ROM Neurovascular/Tendon exam: Present: normal capillary refill, normal fine/light touch. Absent: motor deficit, sensory deficit, tendon deficit Gait: observed and normal - Back Exam Back exam: Present: normal inspection, full ROM, muscle spasm - Neurological Exam Neurological exam: Present: alert, oriented X3, CN II-XII intact, normal gait - Psychiatric Psychiatric exam: Present: normal affect, normal mood - Skin Skin exam: Present: warm, dry, intact, normal color Course Course Narrative: Patient immediately seen and examined patient was given aerosol treatments 2 patient did become little bit tachycardic with this he does not show evidence of being septic despite the fact that he is tech for a continued kidney because of the aerosol treatment in the COPD exacerbation chest x-ray was done as well as blood work and with results I did obtain is without yesterday is been admitted transfer to [facility] Vital Signs O2 Sat by Pulse Oximetry 98 01/13/19 20:56 Temperature 99.1 F 01/13/19 20:58 Pulse Rate 114 01/13/19 21:53 Respiratory Rate 20 01/13/19 21:53 Blood Pressure 116/65 01/13/19 21:53 O2 Sat by Pulse Oximetry 97 01/13/19 21:53 Oxygen Delivery Oxygen Delivery Nasal Cannula Shortness of Breath/Dyspnea - Differential Diagnosis Likely: acute exacerbation of chronic obstructive airways disease - Medical Records Medical records reviewed: Yes I reviewed the patient's medical records. - Lab Data Lab results reviewed: Yes I reviewed the patient's lab results. Result diagrams: 01/13/19 21:37 01/13/19 21:37 Lab Results 01/13/19 01/13/19 Range/Units 21:37 21:37 WBC 6.5 (4.3-11.1) K/mcL RBC 5.09 (4.19-5.50) M/mcL Hgb 15.3 (12.9-16.9) g/dL Hct 49.7 (37.5-50.1) % MCV 97.6 (83.0-100.0) fL MCH 30.1 (28.0-33.3) pg MCHC 30.8 L (31.6-35.5) g/dL RDW 12.3 (11.5-14.5) % Plt Count 194 (140-400) K/mcL MPV 9.7 (9.4-12.4) fL Sodium 141 (136-145) mEq/L Potassium 4.0 (3.5-5.1) mEq/L Chloride 104 (98-107) mEq/L Carbon Dioxide 27 (23-29) mEq/L BUN 13 (8-23) mg/dL Creatinine 0.77 (0.70-1.30) mg/dL Est GFR ( Amer) > 60 (> 60) Est GFR (Non-Af Amer) > 60 (> 60) BUN/Creatinine Ratio 17 (6-26) Glucose 128 H (70-105) mg/dL Calculated Osmolality 294 (280-300) Calcium 9.3 (8.6-10.3) mg/dL Total Bilirubin 0.6 (0.3-1.0) mg/dL AST 27 (13-39) Units/L ALT 16 (7-52) Units/L Alkaline Phosphatase 92 (34-104) Units/L Troponin I < 0.03 (< 0.04) ng/mL Serum Total Protein 6.9 (6.4-8.9) g/dL Albumin 3.4 L (3.5-5.7) g/dL Globulin 3.5 (2.4-3.5) g/dL Albumin/Globulin Ratio 1.0 L (1.1-2.2) - Radiology Data Radiology results reviewed: Yes I reviewed the patient's radiology results. Impressions Chest X-Ray 01/13/19 21:10 IMPRESSION: Vague low left upper lung opacity possibly pneumonia. Bibasilar pleuroparenchymal disease possibly a combination of scarring and effusion. D/ / 01/13/2019 22:15:12 Josue Nuñez / krystina Interpreting Provider: Josue Nuñez - EKG Data EKG attestation: Yes I reviewed and interpreted this EKG. EKG results narrative: Sinus tach rate 123 FL 114 QRS 123 QT 322 axis XCI Critical Care Time Critical Care Time: No
[2019-01-13 21:44] LABS: Hematocrit 49.7 % (37.5-50.1); Hemoglobin 15.3 g/dL (12.9-16.9); Mean Corpuscular HGB Conc 30.8 g/dL (31.6-35.5); Mean Corpuscular Hemoglobin 30.1 pg (28.0-33.3); Mean Corpuscular Volume 97.6 fL (83.0-100.0); Mean Platelet Volume 9.7 fL (9.4-12.4); Platelet Count 194 K/mcL (140-400); Red Blood Count 5.09 M/mcL (4.19-5.50); Red Cell Distribution Width 12.3 % (11.5-14.5); White Blood Count 6.5 K/mcL (4.3-11.1)
[2019-01-13 22:06] LABS: Troponin I < 0.03 ng/mL (< 0.04)
[2019-01-13 22:07] LABS: Alanine Aminotransferase 16 Units/L (7-52); Albumin 3.4 g/dL (3.5-5.7); Alkaline Phosphatase 92 Units/L (34-104); Aspartate Amino Transferase 27 Units/L (13-39); BUN/Creatinine Ratio 17 (6-26); Bilirubin,Total 0.6 mg/dL (0.3-1.0); Blood Urea Nitrogen 13 mg/dL (8-23); Calcium 9.3 mg/dL (8.6-10.3); Carbon Dioxide 27 mEq/L (23-29); Chloride 104 mEq/L (98-107); Globulin 3.5 g/dL (2.4-3.5); Glucose 128 mg/dL (70-105); Osmolality,Calculated 294 (280-300); Sodium 141 mEq/L (136-145); Total Protein 6.9 g/dL (6.4-8.9); eGFR For African Americans > 60 (> 60); eGFR For Non-African Americans > 60 (> 60)
[2019-01-13] MEDS: 0.9 % Sodium Chloride 1,000 ML IVC SCH (23:14)
[2019-01-13] MEDS ORDERED: Naloxone 0.4 MG/ML INJ IVP PRN (23:26)
[2019-01-14] MEDS: 0.9 % Sodium Chloride 1,000 ML IVC SCH ×3 (06:09→23:59)
[2019-01-14] MEDS: MethylPREDNISolone 40 MG/ML VIAL IVP SCH ×3 (06:10→16:51)
[2019-01-14 10:00] LABS: INR 1.1; Prothrombin Time 12.3 Seconds (9.4-12.1)
[2019-01-14 10:03] LABS: Activated Partial Thrombo Time 33.7 Seconds (26.0-36.0)
[2019-01-14] MEDS ORDERED: Morphine Sulfate ER (12 HR) 30 MG TABLET.ER PO SCH ×2 (11:23→20:00)
[2019-01-14] MEDS: Gabapentin 300 MG CAPSULE PO SCH ×3 (11:41→20:45)
[2019-01-14] MEDS: Insulin LISPRO 300 UNITS/3 ML VIAL SQ SCH ×3 (12:20→20:54)
[2019-01-14] MEDS ORDERED: Insulin LISPRO 300 UNITS/3 ML VIAL SQ ONE (13:11)
[2019-01-14] MEDS: Famotidine 20 MG TABLET PO SCH ×2 (13:57→20:45)
[2019-01-14] MEDS: Lithium Oral Soln 300 MG/5 ML UDC PO SCH (16:51)
--- NOTE | 2019-01-14 18:37 | Internal Med History&Physical ---
Date of Encounter: 01/14/19 Time of Encounter: 18:35 Assessment and Plan (1) Acute exacerbation of chronic obstructive airways disease Current visit: Yes Status: Acute Continue neb treatment, his Solu-Medrol to prednisone, add Augmentin (2) Chest pain Current visit: Yes Status: Acute Better follow-up troponin which are normal so far Qualifiers: Chest pain type: unspecified Qualified Code(s): R07.9 - Chest pain, unspecified (3) Community acquired pneumonia Current visit: Yes Status: Acute Add Augmentin follow-up labs Qualifiers: Laterality: right Lung location: lower lobe of lung Qualified Code(s): J18.1 - Lobar pneumonia, unspecified organism (4) DM type 2 (diabetes mellitus, type 2) Current visit: No Status: Chronic Monitor continue insulin Qualifiers: Diabetes mellitus nursing home insulin use: with emt intermediate use Diabetes mellitus complication status: without complication Qualified Code(s): E11.9 - Type 2 diabetes mellitus without complications; Z79.4 - bed bug exterminator (current) use of insulin (5) Anemia Current visit: Yes Status: Chronic Monitor Qualifiers: Anemia type: unspecified type Qualified Code(s): D64.9 - Anemia, unspecified (6) Bipolar disorder Current visit: Yes Status: Acute Continue lithium follow-up level Qualifiers: Active/Remission status: remission status unspecified Qualified Code(s): F31.9 - Bipolar disorder, unspecified (7) Dysphagia Current visit: Yes Status: Acute Consult speech therapy Qualifiers: Dysphagia type: unspecified Qualified Code(s): R13.10 - Dysphagia, unspecified (8) Polyarthritis Current visit: Yes Status: Chronic Continue morphine tenses controlling the pain (9) Hepatitis C Current visit: Yes Status: Chronic Discussion about treatment answers questions Qualifiers: Viral hepatitis chronicity: chronic Hepatic coma status: without hepatic coma Qualified Code(s): B18.2 - Chronic viral hepatitis C (10) Hypertension Current visit: Yes Status: Acute Continue carvedilol Qualifiers: Hypertension type: essential hypertension Qualified Code(s): I10 - Essential (primary) hypertension Internal Medicine - H&P: HPI Chief complaint: Shortness of breath Admitted From: Home Plans for Post Hospital Care: Home History of present illness: Mr. Heaton is a 63 year old male presents emergency room after having a few hours of shortness of breath O2 sat went down to 86%. Is having chills chest pain nonproductive cough weakness fatigue and choking. Denied fever. He was seen in the emergency room and diagnosed with COPD exacerbation. Is given Solu- Medrol and his home medicines. He apparently was on prednisone and Levaquin at home. He said that he is on morphine center extended release 60 mg twice a day and 30 mg immediate release twice a day he reports the etc. release only last about 8 hours. He reports his pain is about 7 out of 10 before the medicine about 3 or 4 out 10 with medicine he can function with. Reports having a raspy voice dysphagia history of hepatitis C asked about treatment. Chest x-ray showed left upper lobe pneumonia with his history of dysphagia think speech therapy should be involved might be aspirating on his food drink reports feeling a little better today than yesterday questions answered concerns addressed Past Med Surg Social Fam HX - Past Medical History Medical history: asthma, atrial fibrillation, COPD, CVA (Hemorrhagic), diabetes, hepatitis, thyroid disease Additional medical history: hep c, intracranial hemorrhage, pneumothorax. recent admissions to [facility] for COPD, PNA Psychiatric history: bipolar - Past Surgical History Surgical History: cholecystectomy Additional surgical history: left shoulder sx. left pneumothorax procedure - Social History Smoking Status: Former smoker Smokeless Tobacco Status: No Alcohol use: none Drug use: marijuana (Occasional), prescription drug abuse, other (Because caffeine is a stimulant and makes one feel a boost of energy by tapping into ones reserve energy, it can lead to anxiety and panic attacks. When used r outiely, it interferes with deep sleep, so the reserve energy isn't being replaced effectively which leads to tiredness, depression, higher risk of infection. I recommend patients gives up daily use.) Current living situation: Home - Independent Activity Level: Independent ambulation - Family History Father Living Status: Still Living (Healthy) Mother Living Status: (COPD) Internal Medicine - H&P: Meds Carvedilol 3.125 mg PO BID 12/22/15 [History] [place] Aspartate [Lithate] 300 mg PO BID 12/22/15 [History] Morphine Sulfate ER (12 HR) [MS Contin] 60 mg PO Q12HR 12/22/15 [History] Ranitidine Oral Soln [Zantac] 150 mg PO BID 12/22/15 [History] Tiotropium [place] [Spiriva Respimat] 4 gm IH DAILY #1 mist.inhal 12/22/15 [Rx] Insulin ASPART [NovoLOG] 0 unit SQ TIDWM 09/12/18 [History] Insulin DETEMIR [Levemir Flextouch] 30 unit SQ QPM 09/28/18 [History] Albuterol Sulfate [Ventolin Hfa] 2 puff IH Q6H PRN 10/16/18 [History] Gabapentin 600 mg PO QID 10/16/18 [History] levoFLOXacin [Levaquin] 750 mg PO DAILY #3 tablet 10/18/18 [Rx] predniSONE [PredniSONE] 40 mg PO DAILY #1 tablet 10/18/18 [Rx] Allergy/AdvReac Type Severity Reaction Status Date / Time No Known Allergies Allergy Verified 09/12/18 15:35 All Systems PM: A 10-system review of systems was performed and is negative for pertinent findings except as documented above in the HPI. - Constitutional Vitals: Temp Pulse Resp BP Pulse Ox 97.8 F 83 16 111/65 95 01/14/19 15:00 01/14/19 15:00 01/14/19 15:00 01/14/19 15:00 01/14/19 15:00 - Head Head exam: Present: atraumatic, normocephalic - Eye Eye exam: Present: PERRL, conjuntiva pink, sclera anicteric Pupils: Present: PERRL - Neck Neck exam general surgery: Present: supple, trachea midline. Absent: lymphadenopathy - Respiratory Respiratory exam: Present: CTAB, wheezes (Expiratory). Absent: accessory muscle use, rales, rhonchi - Cardiovascular Cardiovascular exam: Present: RRR, +S1, +S2. Absent: diastolic murmur, gallop, rubs, systolic murmur - GI/Abdominal GI/Abdominal exam: Present: normal bowel sounds, soft, no peritoneal signs. Absent: distended, tenderness - Extremities Exam Extremities exam: Present: warm, radial pulses palpable and symmetrical. Absent: calf tenderness, cyanotic, pedal edema - Neurological Exam Neurological exam: Present: CN II-XII intact, oriented X3, no focal deficits. Absent: pronater drift, facial droop, speech deficit - Skin Skin exam: Present: dry, intact Internal Med - H&P Results - Labs CBC & Chem 7: 07/27/19 21:37 01/13/19 21:37 Labs: Short CBC 01/13/19 Range/Units 21:37 WBC 6.5 (4.3-11.1) K/mcL Hgb 15.3 (12.9-16.9) g/dL Hct 49.7 (37.5-50.1) % Plt Count 194 (140-400) K/mcL BMP 01/13/19 21:37 Sodium 141 Potassium 4.0 Chloride 104 Carbon Dioxide 27 BUN 13 Creatinine 0.77 Glucose 128 H Calcium 9.3 Cardiac Enzymes 01/13/19 01/14/19 01/14/19 Range/Units 21:37 03:45 09:46 Troponin I < 0.03 0.03 0.03 (< 0.04) ng/mL Liver Function 01/13/19 Range/Units 21:37 Total Bilirubin 0.6 (0.3-1.0) mg/dL AST 27 (13-39) Units/L ALT 16 (7-52) Units/L Alkaline Phosphatase 92 (34-104) Units/L Albumin 3.4 L (3.5-5.7) g/dL - Impressions ITS Impressions Chest X-Ray 01/13/19 21:10 IMPRESSION: Vague low left upper lung opacity possibly pneumonia. Bibasilar pleuroparenchymal disease possibly a combination of scarring and effusion. D/ / 01/13/2019 22:15:12 Josue Nuñez / krystina Interpreting Provider: Josue Nuñez
[2019-01-14] MEDS: Morphine Sulfate ER (12 HR) 30 MG TABLET.ER PO SCH (20:46)
[2019-01-14] MEDS ORDERED: Famotidine 20 MG TABLET PO SCH (21:00)
[2019-01-14] MEDS: Albuterol 2.5 MG/3 ML NEBULIZER IH PRN (23:33)
[2019-01-15] MEDS: Lithium Oral Soln 300 MG/5 ML UDC PO SCH ×3 (00:01→21:15)
[2019-01-15 04:17] LABS: Basophils % 0.2 %; Eosinophils % 0.1 %; Hematocrit 35.9 % (37.5-50.1); Hemoglobin 11.2 g/dL (12.9-16.9); Immature Granulocytes % 1.9 % (0-4); Lymphocytes # 0.7 K/mcL (0.6-4.6); Lymphocytes % 3.5 %; Mean Corpuscular HGB Conc 31.2 g/dL (31.6-35.5); Mean Corpuscular Hemoglobin 29.9 pg (28.0-33.3); Monocytes # 1.1 K/mcL (0.0-1.3); Neutrophils # 16.6 K/mcL (1.6-8.9); Platelet Count 192 K/mcL (140-400); Red Blood Count 3.74 M/mcL (4.19-5.50); Red Cell Distribution Width 12.5 % (11.5-14.5); Segmented Neutrophils % 88.3 %; White Blood Count 18.8 K/mcL (4.3-11.1)
[2019-01-15 05:33] LABS: BUN/Creatinine Ratio 21 (6-26); Blood Urea Nitrogen 17 mg/dL (8-23); Calcium 8.5 mg/dL (8.6-10.3); Carbon Dioxide 32 mEq/L (23-29); Chloride 102 mEq/L (98-107); Glucose 328 mg/dL (70-105); Osmolality,Calculated 296 (280-300); Potassium 5.1 mEq/L (3.5-5.1); Sodium 136 mEq/L (136-145); eGFR For African Americans > 60 (> 60); eGFR For Non-African Americans > 60 (> 60)
[2019-01-15] MEDS: Morphine Sulfate ER (12 HR) 30 MG TABLET.ER PO SCH ×2 (08:04→16:15)
[2019-01-15] MEDS: Gabapentin 300 MG CAPSULE PO SCH ×4 (08:04→21:19)
[2019-01-15] MEDS: Famotidine 20 MG TABLET PO SCH ×2 (08:04→21:16)
[2019-01-15] MEDS: predniSONE 20 MG TABLET PO SCH ×2 (08:05→16:16)
[2019-01-15] MEDS: Insulin LISPRO 300 UNITS/3 ML VIAL SQ SCH ×4 (08:05→21:18)
[2019-01-15] MEDS: 0.9 % Sodium Chloride 1,000 ML IVC SCH (08:05)
--- NOTE | 2019-01-15 13:54 | Internal Med Progress Note ---
Date of Encounter: 01/15/19 Time of Encounter: 13:40 - Assessment and plan (1) Acute exacerbation of chronic obstructive airways disease Current Visit: Yes Status: Acute Assessment and plan: January 15. Chest CT September 2018 showed no worrisome pathology suggesting malignancy. Chest x-ray in ER showed possible left upper lung opacity. He has been started on Augmentin and prednisone. Lactobacillus and prn DuoNebs will be added. Recheck labs in a.m. (2) DM type 2 (diabetes mellitus, type 2) Current Visit: No Status: Chronic Assessment and plan: January 15. Hemoglobin A1c was 6.9% on 09/14/2018. Recheck in a.m. Continue Levemir and Accu-Cheks with SSI. Qualifiers: Diabetes mellitus remote computer terminal operator insulin use: with remote computer terminal operator use Diabetes mellitus complication status: without complication Qualified Code(s): E11.9 - Type 2 diabetes mellitus without complications; Z79.4 - continuous churn buttermaker (current) use of insulin (3) Anemia Current Visit: Yes Status: Chronic Assessment and plan: January 15. Check anemia testing in a.m. Qualifiers: Anemia type: unspecified type Qualified Code(s): D64.9 - Anemia, unspe cified (4) Hypertension Current Visit: Yes Status: Chronic Assessment and plan: January 15. Blood pressure borderline low. Discontinue Coreg. Qualifiers: Hypertension type: essential hypertension Qualified Code(s): I10 - Essential (primary) hypertension - Subjective Interval history: January 15. He has no new complaints. He states he is still dyspneic and does not feel back to his baseline. - Constitutional Vitals: Temp Pulse Resp BP Pulse Ox 97.6 F 73 20 101/60 98 01/15/19 11:15 01/15/19 11:15 01/15/19 11:15 01/15/19 11:15 01/15/19 11:15 Exam: He has prolonged expiratory phase and mild diffuse wheezing. No inspiratory crackles are heard. Heart is regular without murmurs gallops or ectopics. Extremities show no pitting edema. I reviewed his medications and lab results. Internal Medicine: Result - Labs CBC & Chem 7: 01/15/19 04:05 01/15/19 04:05 Labs: Short CBC 01/15/19 Range/Units 04:05 WBC 18.8 H D (4.3-11.1) K/mcL Hgb 11.2 L D (12.9-16.9) g/dL Hct 35.9 L (37.5-50.1) % Plt Count 192 (140-400) K/mcL Neutrophils # 16.6 H (1.6-8.9) K/mcL BMP 01/15/19 04:05 Sodium 136 Potassium 5.1 Chloride 102 Carbon Dioxide 32 H BUN 17 Creatinine 0.81 Glucose 328 H Calcium 8.5 L - ABG Interpretation ABG results: PT/INR, D-dimer PT 12.3 Seconds (9.4-12.1) H 01/14/19 09:46 Consult Discharge Plan - Plan [facility]errals: [facility]Primary Care Provider[facility] - 1 week
--- NOTE | 2019-01-15 14:34 | Electrocardiograph Report ---
[place] [id number] Test Date: 2019-01-13 Pat Name: Pierre Heaton Department: EDP-12 Room: [facility] Gender: M Customer Service Consultant: : 1955 Requested By: Merari Wagner Order Number: [id number] Reading MD: Chadwick Cruz Measurements Intervals [place] Rate: 123 P: 89 SC: 114 QRS: 91 QRSD: 123 T: 47 QT: 322 QTc: 461 Interpretive Statements Sinus tachycardia Consider right atrial enlargement RBBB and LPFB Electronically Signed On 01-15-2019 14:32:48 EDT by Chadwick Cruz
[2019-01-15] MEDS: *HR* Enoxaparin 40 MG/0.4 ML SYRINGE SQ SCH (16:16)
[2019-01-15] MEDS: Ipratropium/Albuterol Neb 3 ML IH PRN (16:59)
[2019-01-15] MEDS: Lactobacillus 1 EACH CAP.SPRINK PO SCH (21:15)
[2019-01-16] MEDS: Morphine Sulfate ER (12 HR) 30 MG TABLET.ER PO SCH ×3 (00:09→17:28)
[2019-01-16] MEDS: *HR* Enoxaparin 40 MG/0.4 ML SYRINGE SQ SCH (06:18)
[2019-01-16 07:10] LABS: Basophils % 0.2 %; Hematocrit 38.8 % (37.5-50.1); Hemoglobin 11.7 g/dL (12.9-16.9); Lymphocytes % 7.7 %; Mean Corpuscular HGB Conc 30.2 g/dL (31.6-35.5); Mean Corpuscular Hemoglobin 29.4 pg (28.0-33.3); Mean Corpuscular Volume 97.5 fL (83.0-100.0); Mean Platelet Volume 10.7 fL (9.4-12.4); Monocytes % 7.6 %; Neutrophils # 11.3 K/mcL (1.6-8.9); Platelet Count 261 K/mcL (140-400); Red Blood Count 3.98 M/mcL (4.19-5.50); Red Cell Distribution Width 12.4 % (11.5-14.5); Segmented Neutrophils % 83.5 %; White Blood Count 13.5 K/mcL (4.3-11.1)
[2019-01-16] MEDS: predniSONE 20 MG TABLET PO SCH ×2 (08:12→17:27)
[2019-01-16] MEDS: Gabapentin 300 MG CAPSULE PO SCH ×4 (08:12→20:18)
[2019-01-16] MEDS: Lithium Oral Soln 300 MG/5 ML UDC PO SCH ×2 (08:12→20:19)
[2019-01-16] MEDS: Lactobacillus 1 EACH CAP.SPRINK PO SCH ×2 (08:12→20:18)
[2019-01-16] MEDS: Famotidine 20 MG TABLET PO SCH ×2 (08:12→20:18)
[2019-01-16] MEDS: Insulin LISPRO 300 UNITS/3 ML VIAL SQ SCH ×4 (08:13→20:20)
[2019-01-16] MEDS: Ipratropium/Albuterol Neb 3 ML IH PRN (08:36)
[2019-01-16 09:12] LABS: % Iron Saturation 27 % (20-55); Iron 87 mcg/dL (65-175); Transferrin 234 mg/dL (203-362)
[2019-01-16 09:17] LABS: Estimated Average Glucose 160 mg/dl
[2019-01-16 09:27] LABS: Ferritin 173 ng/mL (20-250)
[2019-01-16 09:34] LABS: Folate 9.7 ng/mL (3.0-16.0)
--- NOTE | 2019-01-16 12:38 | Internal Med Progress Note ---
Date of Encounter: 01/16/19 Time of Encounter: 12:25 - Assessment and plan (1) Acute exacerbation of chronic obstructive airways disease Current Visit: Yes Status: Acute Assessment and plan: January 15. Chest CT September 2018 showed no worrisome pathology suggesting malignancy. Chest x-ray in ER showed possible left upper lung opacity. He has been started on Augmentin and prednisone. Lactobacillus and prn DuoNebs will be added. Recheck labs in a.m. January 16. WBC decreased to 13.5 with improvement in left shift. Pro-calcitonin elevated at 11.30. Continue Augmentin and prednisone with lactobacillus. Anticipate discharge home tomorrow if stable (2) DM type 2 (diabetes mellitus, type 2) Current Visit: No Status: Chronic Assessment and plan: January 15. Hemoglobin A1c was 6.9% on 09/14/2018. Recheck in a.m. Continue Levemir and Accu-Cheks with SSI. January 16. Hemoglobin A1c acceptable at 7.2%. Continue Levemir and Accu-Cheks with SSI. Qualifiers: Diabetes mellitus fdc insulin use: with fdc use Diabetes mellitus complication status: without complication Qualified Code(s): E11.9 - Type 2 diabetes mellitus without complications; Z79.4 - penitentiary (current) use of insulin (3) Anemia Current Visit: Yes Status: Chronic Assessment and plan: January 15. Check anemia testing in a.m. January 16. Hemoglobin improved to 11.7. Anemia testing showed iron 87, transferrin saturation 27%, transferrin 234, ferritin 173, B12 400, and folate 9.7. Qualifiers: Anemia type: unspecified type Qualified Code(s): D64.9 - Anemia, unspecified (4) Hypertension Current Visit: Yes Status: Chronic Assessment and plan: January 15. Blood pressure borderline low. Discontinue Coreg. January 16. Blood pressure improved. Remain off Coreg Qualifiers: Hypertension type: essential hypertension Qualified Code(s): I10 - Essential (primary) hypertension - Subjective Interval history: January 15. He has no new complaints. He states he is still dyspneic and does not feel back to his baseline. January 16. He has no new complaints. He feels improved but not back to his baseline breathing yet. - Constitutional Vitals: Temp Pulse Resp BP Pulse Ox 97.0 F L 60 16 113/70 100 01/16/19 11:43 01/16/19 11:43 01/16/19 11:43 01/16/19 11:43 01/16/19 11:43 Exam: He is resting comfortably in bed and appears in no acute distress. Lungs show very minimal expiratory wheezing. His conversation is appropriate. His affect is bright and cheerful. I reviewed his medications and lab results. Internal Medicine: Result - Labs CBC & Chem 7: 01/16/19 06:35 01/15/19 04:05 Labs: Short CBC 01/16/19 Range/Units 06:35 WBC 13.5 H (4.3-11.1) K/mcL Hgb 11.7 L (12.9-16.9) g/dL Hct 38.8 (37.5-50.1) % Plt Count 261 (140-400) K/mcL Neutrophils # 11.3 H (1.6-8.9) K/mcL - ABG Interpretation ABG results: PT/INR, D-dimer PT 12.3 Seconds (9.4-12.1) H 01/14/19 09:46 Consult Discharge Plan - Plan [facility]errals: [facility] [Primary Care Provider] - 1 week
[2019-01-16] MEDS: Albuterol 2.5 MG/3 ML NEBULIZER IH PRN (21:29)
[2019-01-17] MEDS: Morphine Sulfate ER (12 HR) 30 MG TABLET.ER PO SCH ×3 (00:47→16:26)
[2019-01-17 05:41] LABS: Basophils % 0.3 %; Eosinophils % 0.1 %; Hematocrit 37.8 % (37.5-50.1); Hemoglobin 11.8 g/dL (12.9-16.9); Immature Granulocytes % 1.6 % (0-4); Lymphocytes # 1.3 K/mcL (0.6-4.6); Mean Corpuscular HGB Conc 31.2 g/dL (31.6-35.5); Mean Corpuscular Hemoglobin 29.5 pg (28.0-33.3); Mean Corpuscular Volume 94.5 fL (83.0-100.0); Mean Platelet Volume 11.3 fL (9.4-12.4); Monocytes # 0.9 K/mcL (0.0-1.3); Monocytes % 8.1 %; Platelet Count 244 K/mcL (140-400); Red Cell Distribution Width 12.3 % (11.5-14.5); Segmented Neutrophils % 78.9 %; White Blood Count 11.6 K/mcL (4.3-11.1)
[2019-01-17 05:56] LABS: Neutrophils # 9.2 K/mcL (1.6-8.9)
[2019-01-17 05:59] LABS: BUN/Creatinine Ratio 27 (6-26); Blood Urea Nitrogen 23 mg/dL (8-23); Calcium 8.8 mg/dL (8.6-10.3); Carbon Dioxide 33 mEq/L (23-29); Chloride 102 mEq/L (98-107); Glucose 163 mg/dL (70-105); Osmolality,Calculated 291 (280-300); Potassium 5.1 mEq/L (3.5-5.1); Sodium 137 mEq/L (136-145); eGFR For African Americans > 60 (> 60); eGFR For Non-African Americans > 60 (> 60)
[2019-01-17] MEDS: *HR* Enoxaparin 40 MG/0.4 ML SYRINGE SQ SCH (06:25)
[2019-01-17] MEDS: Insulin LISPRO 300 UNITS/3 ML VIAL SQ SCH ×3 (07:20→16:54)
[2019-01-17] MEDS: Gabapentin 300 MG CAPSULE PO SCH ×3 (08:55→16:27)
[2019-01-17] MEDS: Lithium Oral Soln 300 MG/5 ML UDC PO SCH (08:55)
[2019-01-17] MEDS: predniSONE 20 MG TABLET PO SCH ×2 (08:56→16:27)
[2019-01-17] MEDS: Lactobacillus 1 EACH CAP.SPRINK PO SCH (08:56)
[2019-01-17] MEDS: Famotidine 20 MG TABLET PO SCH (08:56)
--- NOTE | 2019-01-17 10:03 | Discharge Summary ---
Date of Encounter: 01/17/19 Time of Encounter: 09:55 - Discharge Diagnosis (1) Acute exacerbation of chronic obstructive airways disease Priority: Primary Status: Acute (2) DM type 2 (diabetes mellitus, type 2) Priority: Secondary Status: Chronic Qualifiers: Diabetes mellitus jail insulin use: with jail use Diabetes mellitus complication status: without complication Qualified Code(s): E11.9 - Type 2 diabetes mellitus without complications; Z79.4 - human resources mgr (current) use of insulin (3) Anemia Priority: Secondary Status: Chronic Qualifiers: Anemia type: unspecified type Qualified Code(s): D64.9 - Anemia, unspecified (4) Hypertension Priority: Secondary Status: Chronic Qualifiers: Hypertension type: essential hypertension Qualified Code(s): I10 - Essential (primary) hypertension Hospital course: Mr. Heaton is a 63 year old male who came to emergency room with progressive dyspnea and cough. He was felt to have exacerbation of COPD. He was admitted to [facility] floor and started empirically on Augmentin. Prednisone was also given. WBC shona to 18.8 on 01/15/2019 but had decreased to 11.6 with less left shift on differential I day of discharge. Wheezing resolved by day of discharge. He will continue with antibiotic, probiotic, and prednisone for 3 additional days at discharge. Anemia testing showed iron 87, transferrin saturation 27%, transferrin 234, ferritin 173, B12 400, and folate 9.7. His PCP can monitor hemoglobin. On January 17 he felt improved and stable for discharge home. He will follow with his PCP at [place] within 1 week. He will continue oxygen as at home. - Time Spent with Patient Total time spent providing and/or coordinating discharge services: - Discharge Medications Prescriptions: New Amoxicillin/Clavulanate [Augmentin] 875 mg PO BIDWM #6 tablet Lactobacillus [Culturelle] 1 each PO BID #6 cap.sprink predniSONE [PredniSONE] 10 mg PO BIDWM #6 tablet Continued Albuterol Sulfate [Ventolin Hfa] 2 puff IH Q6H PRN PRN Reason: Shortness Of Breath Gabapentin 600 mg PO QID Ranitidine Oral Soln [Zantac] 150 mg PO BID [place] Aspartate [Lithate] 300 mg PO BID Morphine Sulfate ER (12 HR) [MS Contin] 60 mg PO Q12HR Tiotropium [place] [Spiriva Respimat] 4 gm IH DAILY #1 mist.inhal Insulin ASPART [NovoLOG] 0 unit SQ TIDWM Insulin DETEMIR [Levemir Flextouch] 30 unit SQ QPM Discontinued levoFLOXacin [Levaquin] 750 mg PO DAILY #3 tablet predniSONE [PredniSONE] 40 mg PO DAILY #1 tablet Carvedilol 3.125 mg PO BID Home Medications: [place] Aspartate [Lithate] 300 mg PO BID 12/22/15 [History] Morphine Sulfate ER (12 HR) [MS Contin] 60 mg PO Q12HR 12/22/15 [History] Ranitidine Oral Soln [Zantac] 150 mg PO BID 12/22/15 [History] Tiotropium [place] [Spiriva Respimat] 4 gm IH DAILY #1 mist.inhal 12/22/15 [Rx] Insulin ASPART [NovoLOG] 0 unit SQ TIDWM 09/12/18 [History] Insulin DETEMIR [Levemir Flextouch] 30 unit SQ QPM 09/28/18 [History] Albuterol Sulfate [Ventolin Hfa] 2 puff IH Q6H PRN 10/16/18 [History] Gabapentin 600 mg PO QID 10/16/18 [History] Amoxicillin/Clavulanate [Augmentin] 875 mg PO BIDWM #6 tablet 01/17/19 [Rx] Lactobacillus [Culturelle] 1 each PO BID #6 cap.sprink 01/17/19 [Rx] predniSONE [PredniSONE] 10 mg PO BIDWM #6 tablet 01/17/19 [Rx] Allergies/Adverse Reactions: Allergy/AdvReac Type Severity Reaction Status Date / Time No Known Allergies Allergy Verified 09/12/18 15:35 Date of admission: 01/15/19 14:09 [facility] care physician: [facility] Consults: 01/13/19 23:26 Consult to Nurse Navigator [CONS] Routine Comment: 01/14/19 00:08 Consult to Nutrition [CONS] Routine Comment: POOR APPETITE Consulting Provider: NUTRITION Reason for Dietary Consult: PO Supplementation Other 01/14/19 19:02 Consult to Speech Therapy [CONS] Routine Comment: Evaluate, develop and implement POC Reason for Consult: Dysphagia with left upper lobe pneumonia Call Completed: No - Constitutional Vitals: Temp Pulse Resp BP Pulse Ox 97.8 F 51 16 136/79 94 01/17/19 07:02 01/17/19 07:02 01/17/19 07:02 01/17/19 07:02 01/17/19 07:02 - Patient Status Disposition: Home, Self-Care Condition: Fair - Discharge Instructions Follow Up With: [facility] [Primary Care Provider] - 1 week - Diet and Activity Activity: resume usual activities as tolerated, wear oxygen at all times Diet: advance to your usual diet
[2019-01-17] MEDS: Ipratropium/Albuterol Neb 3 ML IH PRN (10:53)
[2019-01-17 16:52] VITALS: BP 136/68
== END 2019-01-17 18:30 | disposition home or self-care (01) | DRG 190 ==
LOC: EMEROOPIK 20:56 → INPPIK 20:56
PROVIDERS: ADMIT Family Medicine; ATTEND Internal Medicine

== ENCOUNTER 2019-03-27 08:19 | Observation (INO) ==
[~2019-03-27 08:19] MED LIST: Azithromycin 500 MG in 0.9 % Sodium Chloride 250 ML IVPB ONE; Ipratropium/Albuterol Neb 3 ML IH ONE; cefTRIAXone 2,000 MG in Water for inj. (sterile) 10 ML IVP ONE; methylPREDNISolone 125 MG/2 ML VIAL IVP ONE
--- NOTE | 2019-03-27 08:21 | Emergency Department Note ---
Disposition Clinical Impression: Acute exacerbation of chronic obstructive airways disease Acute respiratory failure Qualifiers: Respiratory failure complication: hypoxia and hypercapnia Qualified Code(s): J96.01 - Acute respiratory failure with hypoxia Disposition: Admitted As Inpatient Condition: Serious Time of Disposition: 10:42 SOB HPI - General Chief Complaint: ED Shortness of Breath/Dyspnea Stated Complaint: angela Time Seen by Provider: 03/27/19 08:19 Source: patient Mode of arrival: private vehicle Limitations: physical limitation Nursing Notes Reviewed: Yes Vital Signs Reviewed: Yes - History of Present Illness Patient drove his car to our ER doors and parked. He indicates too short of breath to get out of the car and his been brought in by wheelchair. States he has had shortness of breath over the course of the day and his been severe in last 2-3 hours. He has been on his oxygen and home medications including his Advair. He was unable to sleep over the night because of dyspnea. He denies chest pain but does report a nonproductive coughing, fevers and chills. He states he has had COPD but also reports a history of CHF. He has had history of some lower extremity swelling but none at this time. He denies any change in his medicines. He is unsure of any ill exposures. He denies any abdominal complaints. He only speaks in a couple word sentences and is in a tripod position. He appears severely dyspneic and is mildly dusky in his appearance. He has been placed on 3 L nasal cannula and states he is usually on 2-1/2 L at home. Initial recorded pulse ox was 92%. Pt Subjective Complaint: shortness of breath, cough Onset (ago): day(s) (1) Severity: severe Consistency/Duration: gradually worsening Improves with: nothing Worsens with: exertion, movement, coughing Known history of: COPD, congestive heart failure Associated symptoms: Reports: fever, cough, wheezing, diaphoresis, sense of impending doom. Denies: chest pain, pain with inspiration, sputum production, lower extremity pain, polyuria, polydipsia, parasthesias, palpitations, hemoptysis, nausea/vomiting, syncope, abdominal pain, rash Treatment prior to arrival: oxygen Cough present: Yes Cough Description: Voluntary, Rattling, Wheezy Cough Frequency: Intermittent Sputum production: No - Related Data Home oxygen amount: 3 liters Home Medications Medication Instructions Recorded Confirmed [place] Aspartate [Lithate] 300 mg PO BID 12/22/15 03/27/19 Morphine Sulfate ER (12 HR) [MS 60 mg PO Q12HR 12/22/15 03/27/19 Contin] Ranitidine Oral Soln [Zantac] 150 mg PO BID 12/22/15 03/27/19 Insulin ASPART [NovoLOG] 0 unit SQ TIDWM 09/12/18 03/27/19 Insulin DETEMIR [Levemir Flextouch] 30 unit SQ QPM 09/28/18 03/27/19 Albuterol Sulfate [Ventolin Hfa] 2 puff IH Q6H PRN 10/16/18 03/27/19 Gabapentin 600 mg PO QID 10/16/18 03/27/19 Previous Rx's Medication Instructions Recorded Tiotropium [place] [Spiriva 4 gm IH DAILY #1 mist.inhal 12/22/15 Respimat] Azithromycin [Zithromax] 250 mg PO DAILY #3 tablet 03/05/19 Budesonide/Formoterol 160/4.5 2 puff IH BIDR #1 inh 03/05/19 [Symbicort 160/4.5] Cefuroxime PO [Ceftin] 500 mg PO Q12HR #6 tablet 03/05/19 Lactobacillus [Culturelle] 1 each PO BID #6 cap.sprink 03/05/19 Allergies Allergy/AdvReac Type Severity Reaction Status Date / Time acetaminophen Allergy Abdominal Verified 03/27/19 08:19 Pain All systems ED: reviewed and negative except as stated. Past Medical History - Past Medical History Medical history: Reports: asthma, atrial fibrillation (Ablation 2012), COPD, diabetes, hepatitis (Hepatitis C), thyroid disease, other (Chronic low back pain). Denies: CVA, DVT, hyperlipidemia, hypertension, pulmonary embolus, renal disease, seizures Surgical history: Reports: cholecystectomy, orthopedic, other (Left shoulder), other (Prescription left pneumothorax, intracranial hemorrhage, ablation for A. fib) Psychiatric history: Reports: bipolar - Social History Smoking Status: Former smoker Smokeless Tobacco Status: No Alcohol use: Reports: none Drug use: Reports: marijuana, prescription drug abuse Physical Exam - General Limitations: no limitations General appearance: alert, in distress - Head Head exam: atraumatic, normocephalic, normal inspection - Eye Eye exam: Present: normal appearance, PERRL, EOMI. Absent: scleral icterus, conjunctival injection - ENT ENT exam: normal exam, normal oropharynx, mucous membranes moist - Neck Neck exam: Present: normal inspection, full ROM, trachea midline. Absent: tenderness, lymphadenopathy - Chest Chest inspection: Present: normal inspection, symmetric chest wall rise - Respiratory Respiratory exam: Present: respiratory distress, wheezes, accessory muscle use, prolonged expiratory phase, other (tripod position). Absent: stridor - Cardiovascular Cardiovascular exam: Present: regular rate, normal rhythm, tachycardia. Absent: JVD - Abdominal Exam Abdominal exam: Present: soft, Non-Tender, normal bowel sounds. Absent: tenderness, distention, guarding, rebound, rigidity - Extremities Exam Extremities exam: Present: normal inspection, full ROM, normal capillary refill. Absent: tenderness, pedal edema, calf tenderness - Expanded Lower Extremity Exam Neurovascular/Tendon exam: Present: normal capillary refill Gait: not tested/not observed - Neurological Exam Neurological exam: Present: alert, oriented X3. Absent: motor sensory deficit - Psychiatric Psychiatric exam: Present: agitated, anxious - Skin Skin exam: Present: dry, cyanosis, pallor. Absent: diaphoresis, mottled Course Course Narrative: The patient was evaluated immediately on arrival. His been started on supplemental oxygen and we have called for respiratory for aerosol treatments, BiPAP and an ABG. EKG, X-ray and laboratory has been ordered. He will start also with intravenous fluids,, Solu-Medrol and Rocephin/azithromycin. 0829: Patient has been started on BiPAP. His saturation is 100% with a heart rate of 126 and blood pressure 133/79. BiPAP has been started at 15/5 and 100% FiO2. 0900: Patient continues to show significant improvement. He has a heart rate of 106, blood pressure 104/75 saturation 99%. An ABG was performed after about 10 minutes of being on BiPAP. He still is acidotic at 7.29 with a CO2 elevated at 56 and a O2 of 472. His FiO2 has been decreased to 40%. 0915: Patient's own and is 0.08. He is generally elevated with demand ischemia per previous admissions. He had significant stress with a heart rate of nearly 140 and severe dyspnea with mild dusky cyanosis on 3 L on arrival. He was deny ing chest pain. I will discuss care with Dr. Rodriguez as to whether he would want a repeat troponin or transfer where he has a higher level of care. 0920: Care has been discussed with Dr. Rodriguez. He would like a interval troponin and this has been ordered for 10:10 AM. It is not showing progressive elevation, he is comfortable with his observation at this facility. He advises that he is well acquainted with this patient from previous admissions. 1034: Patient's repeat troponin is 0.07. Verbal orders have been obtained for this patient's observation. 1131: The patient continues to await the RN from the floor to come over to take report taken to his inpatient room. Patient continues to do very well on the BiPAP. Has a heart rate of 98, saturation of 96% on 30% FiO2. Blood pressure is 97/77 and a respiratory rate of 26. Respiratory therapy is discussing trying to wean the BiPAP on arrival to the floor. Vital Signs Temperature 98.4 F 03/27/19 08:20 Pulse Rate 136 03/27/19 08:20 Respiratory Rate 32 03/27/19 08:20 Blood Pressure 133/79 03/27/19 08:20 O2 Sat by Pulse Oximetry 92 03/27/19 08:20 Temperature 98.4 F 03/27/19 08:20 Pulse Rate 98 03/27/19 11:32 Respiratory Rate 22 03/27/19 11:32 Blood Pressure 97/77 03/27/19 11:32 O2 Sat by Pulse Oximetry 97 03/27/19 11:32 Oxygen Delivery Oxygen Delivery Bipap Shortness of Breath/Dyspnea - Differential Diagnosis Likely: acute exacerbation of chronic obstructive airways disease, congestive heart failure, pneumonia, asthma with exacerbation, pneumothorax - Medical Records Medical records reviewed: Yes I reviewed the patient's medical records. Patient's old record indicates that he has no history of CHF or coronary artery disease. She was admitted on March 03 at this facility for similar presentation with diagnosis of COPD exacerbation. It is noted that his troponins are usually 0.040.06 and thought to be secondary to demand ischemia secondary to his severe COPD. - Lab Data Lab results reviewed: Yes I reviewed the patient's lab results. Result diagrams: 03/27/19 08:40 03/27/19 08:40 Lab Results 03/27/19 03/27/19 03/27/19 Range/Units 08:40 08:40 08:40 WBC 17.7 H (4.3-11.1) K/mcL RBC 5.34 (4.19-5.50) M/mcL Hgb 15.7 (12.9-16.9) g/dL Hct 49.0 (37.5-50.1) % MCV 91.8 (83.0-100.0) fL MCH 29.4 (28.0-33.3) pg MCHC 32.0 (31.6-35.5) g/dL RDW 13.4 (11.5-14.5) % Plt Count 246 (140-400) K/mcL MPV 9.6 (9.4-12.4) fL Immature Gran % 5.1 H (0-4) % Seg Neutrophils % 91.8 % Lymphocytes % 1.6 % Monocytes % 0.6 % Eosinophils % 0.2 % Basophils % 0.7 % Neutrophils # 16.3 H (1.6-8.9) K/mcL Lymphocytes # 0.3 L (0.6-4.6) K/mcL Monocytes # 0.1 (0.0-1.3) K/mcL Eosinophils # 0.0 (0.0-0.6) K/mcL Basophils # 0.1 (0.0-0.2) K/mcL Platelet Estimate Normal (Normal) PT 11.1 (9.4-12.1) Seconds INR 1.0 Sample Site ABG pH (7.32-7.45) pH Units ABG pCO2 (35-45) mmHg ABG pO2 (85-104) mmHg ABG HCO3 (21-27) mEq/L ABG Total CO2 (20-26) mEq/L ABG O2 Saturation (95-98) % ABG Base Excess (-2 to 3) mEq/L Ishan Test Respiration Rate O2 Delivery Device Inspired O2 (1-15=lpm ul59-633=%) Sodium (136-145) mEq/L Potassium (3.5-5.1) mEq/L Chloride (98-107) mEq/L Carbon Dioxide (23-29) mEq/L BUN (8-23) mg/dL Creatinine (0.70-1.30) mg/dL Est GFR ( Amer) (> 60) Est GFR (Non-Af Amer) (> 60) BUN/Creatinine Ratio (6-26) Glucose (70-105) mg/dL Calculated Osmolality (280-300) Lactic Acid (0.5-2.2) mmol/L Calcium (8.6-10.3) mg/dL Total Bilirubin 1.1 H (0.3-1.0) mg/dL Direct Bilirubin 0.7 H (0.0-0.2) mg/dL Indirect Bilirubin 0.4 (0.0-1.2) mg/dL AST 62 H (13-39) Units/L ALT 32 (7-52) Units/L Alkaline Phosphatase 124 H (34-104) Units/L Troponin I (< 0.04) ng/mL B-Natriuretic Peptide (Less than 100) pg/mL Serum Total Protein 7.3 (6.4-8.9) g/dL Albumin 3.8 (3.5-5.7) g/dL Globulin 3.5 (2.4-3.5) g/dL Albumin/Globulin Ratio 1.1 (1.1-2.2) [place] (0.6-1.2) mEq/L 03/27/19 03/27/19 03/27/19 Range/Units 08:40 08:40 08:40 WBC (4.3-11.1) K/mcL RBC (4.19-5.50) M/mcL Hgb (12.9-16.9) g/dL Hct (37.5-50.1) % MCV (83.0-100.0) fL MCH (28.0-33.3) pg MCHC (31.6-35.5) g/dL RDW (11.5-14.5) % Plt Count (140-400) K/mcL MPV (9.4-12.4) fL Immature Gran % (0-4) % Seg Neutrophils % % Lymphocytes % % Monocytes % % Eosinophils % % Basophils % % Neutrophils # (1.6-8.9) K/mcL Lymphocytes # (0.6-4.6) K/mcL Monocytes # (0.0-1.3) K/mcL Eosinophils # (0.0-0.6) K/mcL Basophils # (0.0-0.2) K/mcL Platelet Estimate (Normal) PT (9.4-12.1) Seconds INR Sample Site ABG pH (7.32-7.45) pH Units ABG pCO2 (35-45) mmHg ABG pO2 (85-104) mmHg ABG HCO3 (21-27) mEq/L ABG Total CO2 (20-26) mEq/L ABG O2 Saturation (95-98) % ABG Base Excess (-2 to 3) mEq/L Ishan Test Respiration Rate O2 Delivery Device Inspired O2 (1-15=lpm ip55-200=%) Sodium 138 (136-145) mEq/L Potassium 3.6 (3.5-5.1) mEq/L Chloride 104 (98-107) mEq/L Carbon Dioxide 25 (23-29) mEq/L BUN 21 (8-23) mg/dL Creatinine 0.82 (0.70-1.30) mg/dL Est GFR ( Amer) > 60 (> 60) Est GFR (Non-Af Amer) > 60 (> 60) BUN/Creatinine Ratio 26 (6-26) Glucose 152 H (70-105) mg/dL Calculated Osmolality 292 (280-300) Lactic Acid 2.2 (0.5-2.2) mmol/L Calcium 8.6 (8.6-10.3) mg/dL Total Bilirubin (0.3-1.0) mg/dL Direct Bilirubin (0.0-0.2) mg/dL Indirect Bilirubin (0.0-1.2) mg/dL AST (13-39) Units/L ALT (7-52) Units/L Alkaline Phosphatase (34-104) Units/L Troponin I 0.08 H* (< 0.04) ng/mL B-Natriuretic Peptide 123 H (Less than 100) pg/mL Serum Total Protein (6.4-8.9) g/dL Albumin (3.5-5.7) g/dL Globulin (2.4-3.5) g/dL Albumin/Globulin Ratio (1.1-2.2) [place] (0.6-1.2) mEq/L 03/27/19 03/27/19 03/27/19 Range/Units 08:40 08:55 10:08 WBC (4.3-11.1) K/mcL RBC (4.19-5.50) M/mcL Hgb (12.9-16.9) g/dL Hct (37.5-50.1) % MCV (83.0-100.0) fL MCH (28.0-33.3) pg MCHC (31.6-35.5) g/dL RDW (11.5-14.5) % Plt Count (140-400) K/mcL MPV (9.4-12.4) fL Immature Gran % (0-4) % Seg Neutrophils % % Lymphocytes % % Monocytes % % Eosinophils % % Basophils % % Neutrophils # (1.6-8.9) K/mcL Lymphocytes # (0.6-4.6) K/mcL Monocytes # (0.0-1.3) K/mcL Eosinophils # (0.0-0.6) K/mcL Basophils # (0.0-0.2) K/mcL Platelet Estimate (Normal) PT (9.4-12.1) Seconds INR Sample Site L Brach ABG pH 7.29 L (7.32-7.45) pH Units ABG pCO2 56 H (35-45) mmHg ABG pO2 472 H (85-104) mmHg ABG HCO3 27 (21-27) mEq/L ABG Total CO2 29 H (20-26) mEq/L ABG O2 Saturation 100 H (95-98) % ABG Base Excess -1 (-2 to 3) mEq/L Ishan Test Positive Respiration Rate 15 O2 Delivery Device BiPAP Inspired O2 100.0 (1-15=lpm mp57-644=%) Sodium (136-145) mEq/L Potassium (3.5-5.1) mEq/L Chloride (98-107) mEq/L Carbon Dioxide (23-29) mEq/L BUN (8-23) mg/dL Creatinine (0.70-1.30) mg/dL Est GFR ( Amer) (> 60) Est GFR (Non-Af Amer) (> 60) BUN/Creatinine Ratio (6-26) Glucose (70-105) mg/dL Calculated Osmolality (280-300) Lactic Acid (0.5-2.2) mmol/L Calcium (8.6-10.3) mg/dL Total Bilirubin (0.3-1.0) mg/dL Direct Bilirubin (0.0-0.2) mg/dL Indirect Bilirubin (0.0-1.2) mg/dL AST (13-39) Units/L ALT (7-52) Units/L Alkaline Phosphatase (34-104) Units/L Troponin I 0.07 H* (< 0.04) ng/mL B-Natriuretic Peptide (Less than 100) pg/mL Serum Total Protein (6.4-8.9) g/dL Albumin (3.5-5.7) g/dL Globulin (2.4-3.5) g/dL Albumin/Globulin Ratio (1.1-2.2) [place] 0.2 L (0.6-1.2) mEq/L - Radiology Data Radiology results reviewed: Yes I reviewed the patient's radiology results. Single view chest x-rays performed. This demonstrates hyperexpansion consistent with emphysema and COPD. The patient has a stable small right pleural effusion. I do not see focal infiltrate, pneumothorax or mass. Cardiac silhouette appears normal. This is on my interpretation. Impressions Chest X-Ray 03/27/19 08:43 IMPRESSION: 1. No acute cardiopulmonary process 2. 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 EKG shows normal: Reports: sinus rhythm, axis, intervals, ST-T waves [place]/QRS: Reports: RBBB P waves: Reports: LAE Interpretation: Reports: no acute changes Critical Care Time Critical Care Time: Yes Total Critical Care Time: 45 Attestation: As this patient did present with signs and symptoms of potential life- threatening illness requiring my urgent intervention, total critical care time in this patient's care has been 45 minutes, not withstanding separately reportable procedures.
[2019-03-27] MEDS ORDERED: 0.9 % Sodium Chloride 1,000 ML IVC SCH ×2 (08:30→11:32)
[2019-03-27] MEDS: 0.9 % Sodium Chloride 1,000 ML IVC SCH ×2 (08:45→09:21)
[2019-03-27 08:52] LABS: Basophils # 0.1 K/mcL (0.0-0.2); Basophils % 0.7 %; Eosinophils % 0.2 %; Hemoglobin 15.7 g/dL (12.9-16.9); Immature Granulocytes % 5.1 % (0-4); Lymphocytes # 0.3 K/mcL (0.6-4.6); Lymphocytes % 1.6 %; Mean Corpuscular Hemoglobin 29.4 pg (28.0-33.3); Mean Corpuscular Volume 91.8 fL (83.0-100.0); Mean Platelet Volume 9.6 fL (9.4-12.4); Monocytes # 0.1 K/mcL (0.0-1.3); Monocytes % 0.6 %; Platelet Count 246 K/mcL (140-400); Red Blood Count 5.34 M/mcL (4.19-5.50); Red Cell Distribution Width 13.4 % (11.5-14.5); Segmented Neutrophils % 91.8 %; White Blood Count 17.7 K/mcL (4.3-11.1)
[2019-03-27 08:58] LABS: ABG Base Excess -1 mEq/L (-2 to 3); ABG HCO3 27 mEq/L (21-27); ABG Oxygen Saturation 100 % (95-98); ABG PCO2 56 mmHg (35-45); ABG PH 7.29 pH Units (7.32-7.45); ABG PO2 472 mmHg (85-104); ABG TCO2 29 mEq/L (20-26)
[2019-03-27 09:01] LABS: Prothrombin Time 11.1 Seconds (9.4-12.1)
[2019-03-27 09:03] LABS: Neutrophils # 16.3 K/mcL (1.6-8.9)
[2019-03-27 09:10] LABS: BUN/Creatinine Ratio 26 (6-26); Blood Urea Nitrogen 21 mg/dL (8-23); Calcium 8.6 mg/dL (8.6-10.3); Carbon Dioxide 25 mEq/L (23-29); Chloride 104 mEq/L (98-107); Glucose 152 mg/dL (70-105); Osmolality,Calculated 292 (280-300); Potassium 3.6 mEq/L (3.5-5.1); Sodium 138 mEq/L (136-145); eGFR For African Americans > 60 (> 60); eGFR For Non-African Americans > 60 (> 60)
[2019-03-27 09:11] LABS: Albumin 3.8 g/dL (3.5-5.7); Albumin/Globulin Ratio 1.1 (1.1-2.2); Bilirubin,Direct 0.7 mg/dL (0.0-0.2); Bilirubin,Indirect 0.4 mg/dL (0.0-1.2); Bilirubin,Total 1.1 mg/dL (0.3-1.0); Globulin 3.5 g/dL (2.4-3.5); Total Protein 7.3 g/dL (6.4-8.9)
[2019-03-27 09:16] LABS: Troponin I 0.08 ng/mL (< 0.04)
[2019-03-27 09:19] LABS: Platelet Estimate Normal (Normal)
[2019-03-27] MEDS ORDERED: D5% in Water 1,000 ML IVC PRN (11:32)
[2019-03-27] MEDS ORDERED: MOM Conc 10 ML UD.LIQ PO PRN (11:32)
[2019-03-27] MEDS ORDERED: Dextrose Gel 15 GM/37.5 ML TUBE PO PRN ×2 (11:32)
[2019-03-27] MEDS ORDERED: Albuterol 2.5 MG/3 ML NEBULIZER IH PRN (11:32)
[2019-03-27] MEDS ORDERED: Naloxone 0.4 MG/ML INJ IVP PRN (11:32)
[2019-03-27] MEDS ORDERED: *HR* Dextrose 50 % in Water (Vial) 50 ML VIAL IVP PRN (11:32)
[2019-03-27] MEDS ORDERED: Ondansetron 4 MG/2 ML VIAL IVP PRN (11:32)
[2019-03-27] MEDS ORDERED: Mag Hydrox/Al Hydrox/Simeth 30 ML UDC PO PRN (11:32)
[2019-03-27] MEDS: Insulin LISPRO 300 UNITS/3 ML VIAL SQ SCH ×2 (14:05→16:48)
[2019-03-27] MEDS: Gabapentin 300 MG CAPSULE PO SCH ×3 (14:50→21:09)
[2019-03-27] MEDS ORDERED: Ipratropium/Albuterol Neb 3 ML IH SCH (16:00)
[2019-03-27] MEDS ORDERED: predniSONE 20 MG TABLET PO SCH (17:00)
[2019-03-27] MEDS: Insulin DETEMIR 100 UNIT/ML X5UNITS SQ SCH (18:22)
--- NOTE | 2019-03-27 18:31 | Electrocardiograph Report ---
[address] [place], [place] [address] Test Date: 2019-03-27 Pat Name: Pierre Heaton Department: EDP-16 Room: [facility] Gender: M [employer] Operator: : [id number] Requested By: Henrando Awad Order Number: [id number] Reading MD: Katelyn Fritz Measurements Intervals [place] Rate: 138 P: 98 FL: 112 QRS: 103 QRSD: 119 T: -3 QT: 298 QTc: 452 Interpretive Statements Sinus tachycardia Atrial premature complex LAE, consider biatrial enlargement Right bundle branch block and left posterior fascicular block Electronically Signed On 03-27-2019 18:29:46 EDT by Katelyn Fritz
[2019-03-27] MEDS: Morphine Sulfate ER (12 HR) 30 MG TABLET.ER PO SCH (18:39)
--- NOTE | 2019-03-27 18:45 | Internal Med History&Physical ---
Date of Encounter: 03/27/19 Time of Encounter: 18:25 Assessment and Plan (1) Acute exacerbation of chronic obstructive airways disease Current visit: Yes Status: Acute He has been started on Rocephin and Zithromax. He was given Solu-Medrol emergency room and is now ordered prednisone. (2) DM type 2 (diabetes mellitus, type 2) Current visit: No Status: Chronic Check hemoglobin A1c in a.m. Continue Levemir and Accu-Cheks with SSI. Qualifiers: Diabetes mellitus fpc insulin use: with predatory animal exterminator use Diabetes mellitus complication status: without complication Qualified Code(s): E11.9 - Type 2 diabetes mellitus without complications; Z79.4 - FDC (current) use of insulin (3) Hypertension Current visit: No Status: Chronic No antihypertensive medications noted on home med list. Monitor BP. Qualifiers: Hypertension type: essential hypertension Qualified Code(s): I10 - Essential (primary) hypertension (4) Elevated troponin I measurement Current visit: No Status: Acute Elevated almost labs since 10/15/2018. Continue to monitor. (5) Lethargy Current visit: No Status: Acute Suspect due to excessive opiate use. Urine drug screen will be ordered. Reassess in a.m. (6) Chronic low back pain Current visit: No Status: Chronic Continue MS Contin but hold additional analgesics at this time. Qualifiers: Back pain laterality: unspecified Sciatica presence: without sciatica Qu alified Code(s): M54.5 - Low back pain; G89.29 - Other chronic pain Internal Medicine - H&P: HPI Chief complaint: Dyspnea Admitted From: Emergency Dept Plans for Post Hospital Care: Home History of present illness: Mr. Heaton is a 63 year old male who presented to emergency room complaining of increased dyspnea over the past 24 hours. He reported nonproductive cough with fevers and chills. He denied chest pain. He was felt to have exacerbation of COPD and [facility]. He was hospitalized at [facility] approximately 3 weeks ago with similar complaints. Per his last admission history and physical, respiratory history is significant for having smoked from age 12 until quitting approximately 3 months ago. He reports a diagnosis of COPD and uses supplemental oxygen home 10/01. He denies testing for SHADY. Past Med Surg Social Fam HX - Past Medical History Medical history: asthma, atrial fibrillation, COPD, diabetes, hepatitis, thyroid disease, other Additional medical history: hep c, intracranial hemorrhage, pneumothorax. recent admissions to [facility] for COPD, PNA Psychiatric history: bipolar - Past Surgical History Surgical History: cholecystectomy, orthopedic, other, other Additional surgical history: left shoulder sx. left pneumothorax procedure - Social History Smoking Status: Current every day smoker Packs per day: 2 Smokeless Tobacco Status: No Alcohol use: none Drug use: marijuana, prescription drug abuse - Family History Father Living Status: Still Living Mother Living Status: Internal Medicine - H&P: Meds [place] Aspartate [Lithate] 300 mg PO BID 12/22/15 [History] Morphine Sulfate ER (12 HR) [MS Contin] 60 mg PO Q12HR 12/22/15 [History] Ranitidine Oral Soln [Zantac] 150 mg PO BID 12/22/15 [History] Tiotropium Madeline [Spiriva Respimat] 4 gm IH DAILY #1 mist.inhal 12/22/15 [Rx] Insulin ASPART [NovoLOG] 0 unit SQ TIDWM 09/12/18 [History] Insulin DETEMIR [Levemir Flextouch] 30 unit SQ QPM 09/28/18 [History] Albuterol Sulfate [Ventolin Hfa] 2 puff IH Q6H PRN 10/16/18 [History] Gabapentin 600 mg PO QID 10/16/18 [History] Azithromycin [Zithromax] 250 mg PO DAILY #3 tablet 03/05/19 [Rx] Budesonide/Formoterol 160/4.5 [Symbicort 160/4.5] 2 puff IH BIDR #1 inh 03/05/19 [Rx] Cefuroxime PO [Ceftin] 500 mg PO Q12HR #6 tablet 03/05/19 [Rx] Lactobacillus [Culturelle] 1 each PO BID #6 cap.sprink 03/05/19 [Rx] Allergy/AdvReac Type Severity Reaction Status Date / Time acetaminophen Allergy Abdominal Verified 03/27/19 08:19 Pain All Systems PM: A 10-system review of systems was performed and is negative for pertinent findings except as documented above in the HPI. Review of systems: Review of systems from his recent February 2019 [facility] hospitalization were reviewed and revised as below. He is obtunded at present and cannot give a reliable history. Gen.: His weight is unchanged at approximately 68 kg since August 2018 [facility] hosp italization. Cardiovascular: He reports history of atrial fibrillation with an ablation procedure approximately 2012 in [place]. He states he generally maintains NSR if he takes medication as prescribed. He denies hypertension ME heart failure DVT or pulmonary embolus Respiratory: As per history of present illness GI: He denies disorders of his liver gallbladder or exocrine pancreas : He denies hematuria dysuria or kidney stones Neurologic: He denies large distribution strokes or seizures. Endocrine: He was diagnosed with DM 2 approximately 2013. He denies thyroid disease or hyperlipidemia Hematology/oncology: He denies blood disorders cancers or anemia Psychiatric: He denies anxiety depression or other mental health issues Musko skeletal: He reported chronic low back pain last admission with use of scheduled MS Contin as well as prn use of immediate release morphine. He was lethargic on admission in February which resolved on decreased dose of opiates during his hospital stay. I encouraged him at discharge to decrease amount of opiates. He has DJD but denies gout or other bone joint or muscle disorders. - Constitutional Vitals: Temp Pulse Resp BP Pulse Ox 98.9 F 80 20 108/75 96 03/27/19 18:25 03/27/19 18:25 03/27/19 18:25 03/27/19 18:25 03/27/19 18:25 Exam: Gen.: He is well-developed well-nourished male lying in bed who is obtunded. He awakens only for a few seconds before drifting off to sleep again. He cannot supply significant history. HEENT: Head is atraumatic and normocephalic. Eyes: EOMI. There is no scleral icterus. Mouth: Mucosa is moist. Neck: Supple and nontender. There is no thyromegaly or adenopathy noted. Heart: Regular without murmurs gallops or ectopics Lungs: No wheezes or crackles are heard. Abdomen: Soft and nontender. No masses or guarding are noted. Extremities: There is no cyanosis edema or clubbing noted. Dorsalis pedis and posterior tibial pulses are 1-2 over 2 bilaterally. Neurologic: Mental status: He is obtunded and can only awaken for a few seconds before drifting back to sleep. Cranial nerves: He does not follow commands well. His gaze is conjugate. Motor: He cannot maintain outstretched arms. He has occasional very brief jerking movements of his arms. No further neurologic testing is attempted. Skin: Warm and dry Internal Med - H&P Results - Labs CBC & Chem 7: 03/27/19 08:40 03/27/19 08:40 Labs: Short CBC 03/27/19 Range/Units 08:40 WBC 17.7 H (4.3-11.1) K/mcL Hgb 15.7 (12.9-16.9) g/dL Hct 49.0 (37.5-50.1) % Plt Count 246 (140-400) K/mcL Neutrophils # 16.3 H (1.6-8.9) K/mcL BMP 03/27/19 08:40 Sodium 138 Potassium 3.6 Chloride 104 Carbon Dioxide 25 BUN 21 Creatinine 0.82 Glucose 152 H Calcium 8.6 Cardiac Enzymes 03/27/19 03/27/19 Range/Units 08:40 10:08 Troponin I 0.08 H* 0.07 H* (< 0.04) ng/mL Liver Function 03/27/19 Range/Units 08:40 Total Bilirubin 1.1 H (0.3-1.0) mg/dL Direct Bilirubin 0.7 H (0.0-0.2) mg/dL AST 62 H (13-39) Units/L ALT 32 (7-52) Units/L Alkaline Phosphatase 124 H (34-104) Units/L Albumin 3.8 (3.5-5.7) g/dL - ABG Interpretation ABG results: 03/27/19 08:55 ABG pH 7.29 L ABG pCO2 56 H ABG pO2 472 H ABG HCO3 27 ABG Total CO2 29 H ABG O2 Saturation 100 H ABG Base Excess -1 - Impressions ITS Impressions Chest X-Ray 03/27/19 08:43 IMPRESSION: 1. No acute cardiopulmonary process. 2. Stable chronic pleural scarring at the right costophrenic angle. D/ / 03/27/2019 08:57:52 Ilya Rosa MD / brenda Interpreting Provider: Ilya Rosa MD
[2019-03-27] MEDS ORDERED: Famotidine 20 MG TABLET PO SCH (21:00)
[2019-03-27] MEDS: 0.45 % Sodium Chloride w/KCl 20 MEQ/1,000 ML MLS IVC SCH (21:08)
[2019-03-27] MEDS: Lactobacillus 1 EACH CAP.SPRINK PO SCH (21:09)
[2019-03-27] MEDS: Lithium Carbonate 300 MG CAPSULE PO SCH (21:09)
[2019-03-27] MEDS: Famotidine 20 MG TABLET PO SCH ×2 (21:45→21:48)
[2019-03-28] MEDS: Morphine Sulfate ER (12 HR) 30 MG TABLET.ER PO SCH ×2 (05:28→17:57)
[2019-03-28 07:43] LABS: Basophils # 0.1 K/mcL (0.0-0.2); Basophils % 0.2 %; Hematocrit 43.3 % (37.5-50.1); Hemoglobin 13.7 g/dL (12.9-16.9); Immature Granulocytes % 1.4 % (0-4); Lymphocytes # 0.8 K/mcL (0.6-4.6); Lymphocytes % 2.9 %; Mean Corpuscular HGB Conc 31.6 g/dL (31.6-35.5); Mean Corpuscular Hemoglobin 29.5 pg (28.0-33.3); Mean Corpuscular Volume 93.1 fL (83.0-100.0); Mean Platelet Volume 10.6 fL (9.4-12.4); Monocytes # 1.7 K/mcL (0.0-1.3); Monocytes % 6.4 %; Neutrophils # 23.4 K/mcL (1.6-8.9); Platelet Count 200 K/mcL (140-400); Red Blood Count 4.65 M/mcL (4.19-5.50); Segmented Neutrophils % 89.1 %; White Blood Count 26.3 K/mcL (4.3-11.1)
[2019-03-28] MEDS: Lactobacillus 1 EACH CAP.SPRINK PO SCH ×2 (07:55→21:02)
[2019-03-28] MEDS: predniSONE 10 MG TABLET PO SCH ×2 (07:56→16:59)
[2019-03-28] MEDS: Lithium Carbonate 300 MG CAPSULE PO SCH ×2 (07:56→21:02)
[2019-03-28] MEDS: Gabapentin 300 MG CAPSULE PO SCH ×3 (07:56→21:02)
[2019-03-28] MEDS: cefTRIAXone 2,000 MG in 0.9 % Sodium Chloride Mini Bag 100 ML IVPB SCH (07:57)
[2019-03-28] MEDS: Famotidine 20 MG TABLET PO SCH ×2 (07:57→21:02)
[2019-03-28] MEDS: Insulin LISPRO 300 UNITS/3 ML VIAL SQ SCH ×3 (07:59→16:33)
[2019-03-28] MEDS: 0.45 % Sodium Chloride w/KCl 20 MEQ/1,000 ML MLS IVC SCH (08:07)
[2019-03-28 08:17] LABS: Platelet Estimate Normal (Normal)
[2019-03-28 08:25] LABS: Alanine Aminotransferase 25 Units/L (7-52); Albumin 3.3 g/dL (3.5-5.7); Alkaline Phosphatase 75 Units/L (34-104); Aspartate Amino Transferase 24 Units/L (13-39); BUN/Creatinine Ratio 25 (6-26); Bilirubin,Total 0.3 mg/dL (0.3-1.0); Blood Urea Nitrogen 20 mg/dL (8-23); Calcium 8.4 mg/dL (8.6-10.3); Carbon Dioxide 28 mEq/L (23-29); Chloride 109 mEq/L (98-107); Globulin 3.2 g/dL (2.4-3.5); Glucose 178 mg/dL (70-105); Osmolality,Calculated 297 (280-300); Potassium 4.8 mEq/L (3.5-5.1); Sodium 140 mEq/L (136-145); Total Protein 6.5 g/dL (6.4-8.9); eGFR For African Americans > 60 (> 60); eGFR For Non-African Americans > 60 (> 60)
[2019-03-28 09:32] LABS: Estimated Average Glucose 169 mg/dl
[2019-03-28] MEDS: Azithromycin 500 MG in 0.9 % Sodium Chloride 250 ML IVPB SCH (09:51)
--- NOTE | 2019-03-28 10:43 | Internal Med Progress Note ---
Date of Encounter: 03/28/19 Time of Encounter: 10:20 - Assessment and plan (1) Acute exacerbation of chronic obstructive airways disease Current Visit: Yes Status: Acute Assessment and plan: March 28. Continue Rocephin and Zithromax with prednisone. Restart Symbicort and Spiriva. Continue O2. (2) DM type 2 (diabetes mellitus, type 2) Current Visit: No Status: Chronic Assessment and plan: March 28. Hemoglobin A1c 7.5%. Continue Levemir and Accu-Cheks with SSI. Qualifiers: Diabetes mellitus halfway insulin use: with terminologist use Diabetes mellitus complication status: without complication Qualified Code(s): E11.9 - Type 2 diabetes mellitus without complications; Z79.4 - long term care administrator (current) use of insulin (3) Hypertension Current Visit: No Status: Chronic Assessment and plan: March 28. Blood pressure acceptable. Continue to monitor without medication. Qualifiers: Hypertension type: essential hypertension Qualified Code(s): I10 - Essential (primary) hypertension (4) Elevated troponin I measurement Current Visit: No Status: Acute Assessment and plan: March 28. Observe. (5) Lethargy Current Visit: No Status: Resolved Assessment and plan: March 28. Opiates were held last evening and he has returned to baseline mental status. He argued that he only becomes lethargic when he does not get his medications but I explained that was illogical and he had proven this on last admission and this admission in that withholding opiates was associated with him becoming more alert. (6) Chronic low back pain Current Visit: No Status: Chronic Assessment and plan: March 28. Continue present Rx. Qualifiers: Back pain laterality: unspecified Sciatica presence: without sciatica Qualified Code(s): M54.5 - Low back pain; G89.29 - Other chronic pain - Subjective Interval history: March 28. He has no new complaints except chronic pain. - Constitutional Vitals: Temp Pulse Resp BP Pulse Ox 98.8 F 72 16 143/85 98 03/28/19 07:11 03/28/19 07:11 03/28/19 07:11 03/28/19 07:11 03/28/19 07:11 Exam: He is fully awake alert and talkative today. He does not appear to be in significant pain at rest. Lungs show no wheezes or crackles. I reviewed his medications and lab results. Internal Medicine: Result - Labs CBC & Chem 7: 03/28/19 07:08 03/28/19 07:08 Labs: Short CBC 03/28/19 Range/Units 07:08 WBC 26.3 H (4.3-11.1) K/mcL Hgb 13.7 D (12.9-16.9) g/dL Hct 43.3 (37.5-50.1) % Plt Count 200 (140-400) K/mcL Neutrophils # 23.4 H (1.6-8.9) K/mcL BMP 03/28/19 07:08 Sodium 140 Potassium 4.8 D Chloride 109 H Carbon Dioxide 28 BUN 20 Creatinine 0.80 Glucose 178 H Calcium 8.4 L Cardiac Enzymes 03/27/19 Range/Units 10:08 Troponin I 0.07 H* (< 0.04) ng/mL Liver Function 03/28/19 Range/Units 07:08 Total Bilirubin 0.3 (0.3-1.0) mg/dL AST 24 (13-39) Units/L ALT 25 (7-52) Units/L Alkaline Phosphatase 75 (34-104) Units/L Albumin 3.3 L (3.5-5.7) g/dL - ABG Interpretation ABG results: ABG ABG pH 7.29 pH Units (7.32-7.45) L 03/27/19 08:55 ABG pCO2 56 mmHg (35-45) H 03/27/19 08:55 ABG pO2 472 mmHg (85-104) H 03/27/19 08:55 ABG O2 Saturation 100 % (95-98) H 03/27/19 08:55 PT/INR, D-dimer PT 11.1 Seconds (9.4-12.1) 03/27/19 08:40 - Impressions Impressions Chest X-Ray 03/27/19 08:43 IMPRESSION: 1. No acute cardiopulmonary process. 2. Stable chronic pleural scarring at the right costophrenic angle. D/ / 03/27/2019 08:57:52 Ilya Rosa MD / brenda Interpreting Provider: Ilya Rosa MD Consult Discharge Plan - Plan [facility]errals: [facility] Care Provider[facility] - 1 week
[2019-03-28] MEDS ORDERED: *HR* Promethazine 25 MG/ML VIAL IVP PRN (10:58)
[2019-03-28] MEDS ORDERED: Ondansetron 4 MG/2 ML VIAL IVP PRN (11:13)
[2019-03-28] MEDS: Budesonide/Formoterol 160/4.5 1 PUFF INH IH SCH ×2 (11:36→22:07)
[2019-03-28] MEDS: Tiotropium 18 MCG inhalation IH SCH (11:37)
[2019-03-28 14:07] LABS: Bilirubin,Urine Negative (Negative); Blood,Urine Trace-lysed (Negative); Clarity,Urine Clear (Clear); Color,Urine Yellow (Yellow); Glucose,Urine (UA) 100 mg/dL (Normal); Ketones,Urine Negative (Negative); Leukocyte Esterase,Urine Small (Negative); Nitrite,Urine Negative (Negative); Protein,Urine Negative (Neg-Trace); Urobilinogen,Urine Normal (Normal)
[2019-03-28 14:16] LABS: Bacteria,Urine Few per hpf (None-Few); Squamous Epithelial Cell,Urine Few per lpf (None-Few)
[2019-03-28 14:17] LABS: WBC,Urine 30-50 per hpf (0-3); Yeast,Urine Moderate per hpf (None Seen)
[2019-03-28 14:19] LABS: Amphetamine Screen,Urine Negative ng/mL (Cutoff=1000); Barbiturate Screen,Urine Negative ng/mL (Cutoff=200); Benzodiazepines Screen,Urine Negative ng/mL (Cutoff=200); Cannabinoid Screen,Urine Positive ng/mL (Cutoff = 50); Cocaine Screen,Urine Negative ng/mL (Cutoff= 300); Opiate Screen,Urine Positive ng/mL (Cutoff=300); Phencyclidine Screen,Urine Negative ng/mL (Cutoff=25)
[2019-03-28] MEDS ORDERED: Insulin DETEMIR 100 UNIT/ML X5UNITS SQ ONE (17:33)
[2019-03-28] MEDS: Insulin DETEMIR 100 UNIT/ML X5UNITS SQ SCH (17:35)
[2019-03-29] MEDS: Morphine Sulfate ER (12 HR) 30 MG TABLET.ER PO SCH (05:29)
[2019-03-29 06:38] LABS: Basophils % 0.2 %; Eosinophils % 0.1 %; Hematocrit 37.7 % (37.5-50.1); Hemoglobin 12.1 g/dL (12.9-16.9); Immature Granulocytes % 1.4 % (0-4); Lymphocytes # 1.6 K/mcL (0.6-4.6); Lymphocytes % 9.1 %; Mean Corpuscular HGB Conc 32.1 g/dL (31.6-35.5); Mean Corpuscular Hemoglobin 29.5 pg (28.0-33.3); Mean Platelet Volume 10.5 fL (9.4-12.4); Monocytes # 1.5 K/mcL (0.0-1.3); Monocytes % 8.5 %; Neutrophils # 13.8 K/mcL (1.6-8.9); Platelet Count 187 K/mcL (140-400); Red Cell Distribution Width 13.5 % (11.5-14.5); Segmented Neutrophils % 80.7 %; White Blood Count 17.1 K/mcL (4.3-11.1)
[2019-03-29 06:48] LABS: BUN/Creatinine Ratio 27 (6-26); Blood Urea Nitrogen 20 mg/dL (8-23); Calcium 8.3 mg/dL (8.6-10.3); Carbon Dioxide 27 mEq/L (23-29); Chloride 104 mEq/L (98-107); Glucose 334 mg/dL (70-105); Osmolality,Calculated 294 (280-300); Potassium 5.1 mEq/L (3.5-5.1); Sodium 134 mEq/L (136-145); eGFR For African Americans > 60 (> 60); eGFR For Non-African Americans > 60 (> 60)
[2019-03-29 07:34] VITALS: BP 104/65
[2019-03-29] MEDS: Lactobacillus 1 EACH CAP.SPRINK PO SCH (08:00)
[2019-03-29] MEDS: predniSONE 10 MG TABLET PO SCH (08:00)
[2019-03-29] MEDS: Lithium Carbonate 300 MG CAPSULE PO SCH (08:00)
[2019-03-29] MEDS: Gabapentin 300 MG CAPSULE PO SCH (08:00)
[2019-03-29] MEDS: Famotidine 20 MG TABLET PO SCH (08:00)
[2019-03-29] MEDS: Insulin LISPRO 300 UNITS/3 ML VIAL SQ SCH ×2 (08:02→12:28)
[2019-03-29] MEDS: cefTRIAXone 2,000 MG in 0.9 % Sodium Chloride Mini Bag 100 ML IVPB SCH (08:08)
[2019-03-29] MEDS: Azithromycin 500 MG in 0.9 % Sodium Chloride 250 ML IVPB SCH (08:44)
[2019-03-29] MEDS: Budesonide/Formoterol 160/4.5 1 PUFF INH IH SCH (10:27)
[2019-03-29] MEDS: Tiotropium 18 MCG inhalation IH SCH (10:28)
--- NOTE | 2019-03-29 10:30 | Discharge Summary ---
Orders not resulted at time of discharge: Pending orders 03/27/19 08:40 Culture,Blood [BC] Stat 03/27/19 13:57 Culture,Urine [RM] Routine Date of Encounter: 03/29/19 Time of Encounter: 10:20 - Discharge Diagnosis (1) Acute exacerbation of chronic obstructive airways disease Priority: Primary Status: Acute (2) DM type 2 (diabetes mellitus, type 2) Priority: Secondary Status: Chronic Qualifiers: Diabetes mellitus long-term insulin use: with longwall headgate operator use Diabetes mellitus complication status: without complication Qualified Code(s): E11.9 - Type 2 diabetes mellitus without complications; Z79.4 - bilingual account manager (current) use of insulin (3) Hypertension Priority: Secondary Status: Chronic Qualifiers: Hypertension type: essential hypertension Qualified Code(s): I10 - Essential (primary) hypertension (4) Elevated troponin I measurement Priority: Secondary Status: Acute (5) Lethargy Priority: Secondary Status: Resolved (6) Chronic low back pain Priority: Secondary Status: Chronic Qualifiers: Back pain laterality: unspecified Sciatica presence: without sciatica Qualified Code(s): M54.5 - Low back pain; G89.29 - Other chronic pain Hospital course: Mr. Heaton is a 63 year old male who presented to emergency room complaining of increased dyspnea over the past 24 hours. He reported nonproductive cough with fevers and chills. He denied chest pain. He was felt to have exacerbation of COPD [facility] I saw him on March 27 and performed a history and physical. He was started empirically on Rocephin and Zithromax. He was given Solu-Medrol in emergency room and ordered prednisone. He had good clinical response with returned to baseline by March 29. He remained afebrile during his hospital stay. He will continue with antibiotic, prednisone, and probiotic for 3 additional days at discharge. He reported on the day of discharge he did not feel prescriptions given him at the time of his last discharge. Hemoglobin A1c return slightly elevated 7.5%. His PCP can adjust diabetic Rx regimen as needed. Urine tox screen returned positive for opiates and THC. He returned to baseline mental status by the day after admission remained stable for the remainder of hospitalization. On March 29 he was stable for discharge home. He will follow with his PCP at OR within 1 week. - Time Spent with Patient Total time spent providing and/or coordinating discharge services: - Discharge Medications Prescriptions: New predniSONE [PredniSONE] 10 mg PO BIDWM #6 tablet Continued Gabapentin 600 mg PO QID Ranitidine Oral Soln [Zantac] 150 mg PO BID [place] Aspartate [Lithate] 300 mg PO BID Morphine Sulfate ER (12 HR) [MS Contin] 60 mg PO Q12HR Insulin ASPART [NovoLOG] 0 unit SQ TIDWM Insulin DETEMIR [Levemir Flextouch] 30 unit SQ QPM Lactobacillus [Culturelle] 1 each PO BID #6 cap.sprink Cefuroxime PO [Ceftin] 500 mg PO Q12HR #6 tablet Tiotropium We[place]ert [Spiriva Respimat] 4 gm IH DAILY #1 mist.inhal Budesonide/Formoterol 160/4.5 [Symbicort 160/4.5] 2 puff IH BIDR #1 inh Albuterol Sulfate [Ventolin Hfa] 2 puff IH Q6H PRN #1 inh PRN Reason: Shortness Of Breath Azithromycin [Zithromax] 250 mg PO DAILY #3 tablet Home Medications: [place] Aspartate [Lithate] 300 mg PO BID 12/22/15 [History] Morphine Sulfate ER (12 HR) [MS Contin] 60 mg PO Q12HR 12/22/15 [History] Ranitidine Oral Soln [Zantac] 150 mg PO BID 12/22/15 [History] Insulin ASPART [NovoLOG] 0 unit SQ TIDWM 09/12/18 [History] Insulin DETEMIR [Levemir Flextouch] 30 unit SQ QPM 09/28/18 [History] Gabapentin 600 mg PO QID 10/16/18 [History] Lactobacillus [Culturelle] 1 each PO BID #6 cap.sprink 03/05/19 [Rx] Albuterol Sulfate [Ventolin Hfa] 2 puff IH Q6H PRN #1 inh 03/29/19 [Rx] Azithromycin [Zithromax] 250 mg PO DAILY #3 tablet 03/29/19 [Rx] Budesonide/Formoterol 160/4.5 [Symbicort 160/4.5] 2 puff IH BIDR #1 inh 03/29/19 [Rx] Cefuroxime PO [Ceftin] 500 mg PO Q12HR #6 tablet 03/29/19 [Rx] Tiotropium Weinert [Spiriva Respimat] 4 gm IH DAILY #1 mist.inhal 03/29/19 [Rx] predniSONE [PredniSONE] 10 mg PO BIDWM #6 tablet 03/29/19 [Rx] Allergies/Adverse Reactions: Allergy/AdvReac Type Severity Reaction Status Date / Time acetaminophen Allergy Abdominal Verified 03/27/19 08:19 Pain Date of admission: 03/27/19 10:44 [facility] care physician: [facility] Consults: 03/27/19 15:48 Consult to Nutrition [CONS] Routine Comment: Consulting Provider: NUTRITION Reason for Dietary Consult: MST Score - Constitutional Vitals: Temp Pulse Resp BP Pulse Ox 98.2 F 56 18 104/65 98 03/29/19 07:29 03/29/19 07:29 03/29/19 07:29 03/29/19 07:29 03/29/19 07:29 - Patient Status Disposition: Home, Self-Care Condition: Serious - Discharge Instructions Follow Up With: [facility] [Primary Care Provider[facility] - 1 week - Diet and Activity Activity: resume usual activities as tolerated, wear oxygen at all times Diet: advance to your usual diet
== END 2019-03-29 16:05 | disposition home or self-care (01) ==
LOC: EMEROOPIK 08:19 → INPPIK 08:19
PROVIDERS: ADMIT Internal Medicine; ATTEND Internal Medicine

== ENCOUNTER 2020-05-08 17:07 | Observation (INO) ==
[2020-05-08] MEDS ORDERED: cefTRIAXone 2,000 MG in Water for inj. (sterile) 10 ML IVP ONE (17:14)
[2020-05-08] MEDS ORDERED: methylPREDNISolone 125 MG/2 ML VIAL IVP ONE (17:14)
[2020-05-08] MEDS ORDERED: Azithromycin 500 MG in 0.9 % Sodium Chloride 250 ML IVPB ONE (17:14)
[2020-05-08] MEDS ORDERED: Ipratropium/Albuterol Neb 3 ML IH ONE (17:14)
[2020-05-08] MEDS ORDERED: 0.9 % Sodium Chloride 1,000 ML IVC SCH (17:30)
[2020-05-08 18:01] LABS: Basophils # 0.1 K/mcL (0.0-0.2); Basophils % 0.6 %; Eosinophils % 0.1 %; Hematocrit 41.6 % (37.5-50.1); Hemoglobin 12.9 g/dL (12.9-16.9); Immature Granulocytes % 0.9 % (0-4); Lymphocytes # 1.2 K/mcL (0.6-4.6); Lymphocytes % 8.6 %; Mean Corpuscular Hemoglobin 30.4 pg (28.0-33.3); Mean Corpuscular Volume 98.1 fL (83.0-100.0); Monocytes # 1.1 K/mcL (0.0-1.3); Monocytes % 7.6 %; Neutrophils # 11.4 K/mcL (1.6-8.9); Platelet Count 197 K/mcL (140-400); Red Blood Count 4.24 M/mcL (4.19-5.50); Red Cell Distribution Width 12.1 % (11.5-14.5); Segmented Neutrophils % 82.2 %; White Blood Count 13.9 K/mcL (4.3-11.1)
[2020-05-08 18:01] LABS: ABG Base Excess 16 mEq/L (-2 to 3); ABG HCO3 48 mEq/L (21-27); ABG Oxygen Saturation 89 % (95-98); ABG PCO2 93 mmHg (35-45); ABG PH 7.32 pH Units (7.32-7.45); ABG PO2 66 mmHg (85-104); ABG TCO2 > 50 mEq/L (20-26)
[2020-05-08 18:07] LABS: Prothrombin Time 11.9 Seconds (9.4-12.1)
[2020-05-08 18:10] LABS: Activated Partial Thrombo Time 30.2 Seconds (26.0-36.0)
[2020-05-08 18:23] LABS: Alanine Aminotransferase 40 Units/L (7-52); Albumin 3.5 g/dL (3.5-5.7); Albumin/Globulin Ratio 1.3 (1.1-2.2); Alkaline Phosphatase 54 Units/L (34-104); Aspartate Amino Transferase 29 Units/L (13-39); BUN/Creatinine Ratio 33 (6-26); Bilirubin,Direct 0.2 mg/dL (0.0-0.2); Bilirubin,Indirect 0.3 mg/dL (0.0-1.0); Bilirubin,Total 0.5 mg/dL (0.3-1.0); Blood Urea Nitrogen 20 mg/dL (8-23); Chloride 93 mEq/L (98-107); Globulin 2.6 g/dL (2.4-3.5); Glucose 139 mg/dL (70-105); Osmolality,Calculated 301 (280-300); Potassium 4.5 mEq/L (3.5-5.1); Sodium 143 mEq/L (136-145); Total Protein 6.1 g/dL (6.4-8.9); Troponin I 0.04 ng/mL (< 0.04); eGFR For African Americans > 60 (> 60); eGFR For Non-African Americans > 60 (> 60)
[2020-05-08 18:39] LABS: Carbon Dioxide 45 mEq/L (23-29)
[2020-05-08 19:18] LABS: ABG Base Excess 16 mEq/L (-2 to 3); ABG HCO3 45 mEq/L (21-27); ABG Oxygen Saturation 79 % (95-98); ABG PCO2 79 mmHg (35-45); ABG PH 7.37 pH Units (7.32-7.45); ABG PO2 48 mmHg (85-104); ABG TCO2 48 mEq/L (20-26); Blood Gas Modality BiLevel
[2020-05-08] MEDS ORDERED: Naloxone 0.4 MG/ML INJ IVP PRN ×3 (19:31→20:22)
[2020-05-08] MEDS ORDERED: Ondansetron 4 MG/2 ML VIAL IVP PRN ×2 (19:31→20:22)
[2020-05-08] MEDS ORDERED: MOM Conc 10 ML UD.LIQ PO PRN ×3 (19:31→20:22)
[2020-05-08] MEDS ORDERED: Mag Hydrox/Al Hydrox/Simeth 30 ML UDC PO PRN ×3 (19:31→22:49)
[2020-05-08] MEDS ORDERED: Acetaminophen 325 MG TABLET PO PRN ×2 (19:31→20:22)
[2020-05-08] MEDS ORDERED: Ipratropium/Albuterol Neb 3 ML IH PRN ×2 (19:44→20:22)
[2020-05-08] MEDS ORDERED: MethylPREDNISolone 40 MG/ML VIAL IVP SCH (19:45)
[2020-05-08] MEDS ORDERED: Dextrose Gel 15 GM/37.5 ML TUBE PO PRN ×2 (20:22)
[2020-05-08] MEDS ORDERED: D5% in Water 1,000 ML IVC PRN (20:22)
[2020-05-08] MEDS ORDERED: *HR* Dextrose 50 % in Water (Vial) 50 ML VIAL IVP PRN (20:22)
[2020-05-08] MEDS ORDERED: Albuterol 2.5 MG/3 ML NEBULIZER IH PRN (20:22)
[2020-05-08] MEDS ORDERED: Ondansetron ODT 4 MG TAB.RAPDIS SL PRN (20:22)
[2020-05-08] MEDS ORDERED: Insulin LISPRO 300 UNITS/3 ML VIAL SQ SCH (21:00)
[2020-05-08] MEDS ORDERED: Ipratropium/Albuterol Neb 3 ML IH SCH (22:00)
[2020-05-08 22:20] LABS: ABG Base Excess 14 mEq/L (-2 to 3); ABG HCO3 43 mEq/L (21-27); ABG Oxygen Saturation 90 % (95-98); ABG PCO2 74 mmHg (35-45); ABG PH 7.37 pH Units (7.32-7.45); ABG PO2 64 mmHg (85-104); ABG TCO2 45 mEq/L (20-26)
[2020-05-09] MEDS ORDERED: Haloperidol Lactate 5 MG/ML VIAL IVP ONE (01:18)
[2020-05-09 02:07] LABS: ABG Base Excess 13 mEq/L (-2 to 3); ABG HCO3 41 mEq/L (21-27); ABG Oxygen Saturation 84 % (95-98); ABG PCO2 68 mmHg (35-45); ABG PH 7.39 pH Units (7.32-7.45); ABG PO2 52 mmHg (85-104); ABG TCO2 43 mEq/L (20-26)
[2020-05-09] MEDS ORDERED: *HR* LORazepam 2 MG/ML VIAL IVP ONE (03:07)
[2020-05-09] MEDS: 0.9 % Sodium Chloride 1,000 ML IVC SCH ×2 (03:23→08:35)
[2020-05-09] MEDS ORDERED: MethylPREDNISolone 40 MG/ML VIAL IVP SCH ×2 (03:45→09:15)
[2020-05-09 06:36] VITALS: BP 143/84
[2020-05-09 07:44] LABS: Basophils % 0.3 %; Hemoglobin 12.9 g/dL (12.9-16.9); Immature Granulocytes % 0.9 % (0-4); Lymphocytes # 0.7 K/mcL (0.6-4.6); Lymphocytes % 7.1 %; Mean Corpuscular HGB Conc 31.5 g/dL (31.6-35.5); Mean Corpuscular Hemoglobin 30.8 pg (28.0-33.3); Mean Corpuscular Volume 97.9 fL (83.0-100.0); Mean Platelet Volume 10.6 fL (9.4-12.4); Monocytes # 0.2 K/mcL (0.0-1.3); Monocytes % 2.5 %; Neutrophils # 8.3 K/mcL (1.6-8.9); Platelet Count 148 K/mcL (140-400); Red Blood Count 4.19 M/mcL (4.19-5.50); Red Cell Distribution Width 12.4 % (11.5-14.5); Segmented Neutrophils % 89.2 %; White Blood Count 9.3 K/mcL (4.3-11.1)
[2020-05-09] MEDS ORDERED: *HR* Enoxaparin 40 MG/0.4 ML SYRINGE SQ SCH (07:52)
[2020-05-09] MEDS ORDERED: predniSONE 20 MG TABLET PO SCH (08:00)
[2020-05-09] MEDS ORDERED: *HR* Enoxaparin 30 MG/0.3 ML SYRINGE SQ STA (08:08)
[2020-05-09] MEDS ORDERED: Aspirin 325 MG TABLET PO ONE (08:11)
[2020-05-09 08:21] LABS: ABG Base Excess 11 mEq/L (-2 to 3); ABG HCO3 40 mEq/L (21-27); ABG Oxygen Saturation 91 % (95-98); ABG PCO2 76 mmHg (35-45); ABG PH 7.33 pH Units (7.32-7.45); ABG PO2 70 mmHg (85-104); ABG TCO2 42 mEq/L (20-26)
[2020-05-09] MEDS: Insulin LISPRO 300 UNITS/3 ML VIAL SQ SCH ×2 (08:25→13:44)
[2020-05-09] MEDS ORDERED: (Suboxone 8 Mg-2 Mg SL) SL SCH (09:00)
[2020-05-09] MEDS ORDERED: Azithromycin 500 MG in 0.9 % Sodium Chloride 250 ML IVPB SCH ×2 (09:00→20:00)
[2020-05-09] MEDS ORDERED: SUBOXONE SL SCH ×2 (09:00→11:00)
[2020-05-09] MEDS ORDERED: cefTRIAXone 2,000 MG in 0.9 % Sodium Chloride Mini Bag 100 ML IVPB SCH ×2 (09:00→09:13)
[2020-05-09] MEDS ORDERED: Aspirin Enteric Coated 81 MG Tablet PO SCH (09:00)
[2020-05-09 09:46] LABS: Alanine Aminotransferase 38 Units/L (7-52); Albumin 3.6 g/dL (3.5-5.7); Albumin/Globulin Ratio 1.4 (1.1-2.2); Alkaline Phosphatase 50 Units/L (34-104); Aspartate Amino Transferase 29 Units/L (13-39); BUN/Creatinine Ratio 38 (6-26); Bilirubin,Total 0.5 mg/dL (0.3-1.0); Blood Urea Nitrogen 26 mg/dL (8-23); Calcium 8.9 mg/dL (8.6-10.3); Carbon Dioxide 39 mEq/L (23-29); Chloride 97 mEq/L (98-107); Globulin 2.6 g/dL (2.4-3.5); Glucose 162 mg/dL (70-105); Osmolality,Calculated 302 (280-300); Potassium 4.3 mEq/L (3.5-5.1); Sodium 142 mEq/L (136-145); Total Protein 6.2 g/dL (6.4-8.9); eGFR For African Americans > 60 (> 60); eGFR For Non-African Americans > 60 (> 60)
[2020-05-09] MEDS ORDERED: Isovue-370 500 ML BOTTLE IVP ONE (09:51)
[2020-05-09 09:52] LABS: Thyroid Stimulating Hormone 0.036 mcIU/mL (0.340-5.600)
[2020-05-09] MEDS ORDERED: Suboxone 8 Mg-2 Mg SL SL SCH (11:00)
[2020-05-09] MEDS ORDERED: Ipratropium/Albuterol Neb 3 ML IH SCH (12:00)
[2020-05-09] MEDS ORDERED: Budesonide/Formoterol 160/4.5 1 PUFF INH IH SCH (13:30)
[2020-05-09 14:03] LABS: ABG Base Excess 11 mEq/L (-2 to 3); ABG HCO3 39 mEq/L (21-27); ABG Oxygen Saturation 91 % (95-98); ABG PCO2 69 mmHg (35-45); ABG PH 7.37 pH Units (7.32-7.45); ABG PO2 66 mmHg (85-104); ABG TCO2 41 mEq/L (20-26); Blood Gas FiO2 1.5 (1-15=lpm or21-100=%)
[2020-05-09] MEDS ORDERED: carvediloL 6.25 MG TABLET PO SCH ×2 (17:00)
[2020-05-10] MEDS ORDERED: Aspirin Enteric Coated 81 MG Tablet PO SCH (09:00)
== END 2020-05-09 15:30 | disposition short-term general hospital (02) ==
LOC: EMEROOPIK 17:07 → INPPIK 17:07
PROVIDERS: ADMIT Family Medicine; ATTEND Family Medicine

== ENCOUNTER 2021-05-29 17:17 | Inpatient (IN) ==
[2021-05-29] MEDS ORDERED: Famotidine 20 MG TABLET PO PRN (18:14)
[2021-05-29] MEDS ORDERED: Ipratropium/Albuterol Neb 3 ML IH PRN (18:14)
[2021-05-29] MEDS ORDERED: Azithromycin 250 MG TABLET PO SCH (18:15)
[2021-05-29] MEDS ORDERED: NON-FORMULARY MEDICATION 1 EACH EACH (Insulin Detemir [Levemir Flextouch] 100 UNIT/ML Insu SQ SCH (21:00)
[2021-05-29] MEDS ORDERED: Insulin DETEMIR 100 UNIT/ML per UNIT SUBQ ONE (21:00)
[2021-05-29] MEDS: Budesonide/Formoterol 160/4.5 1 PUFF INH IH SCH ×2 (21:35→21:42)
[2021-05-29] MEDS: Ipratropium 1 PUFF INHALER IH SCH (21:41)
[2021-05-29] MEDS: Melatonin 3 MG TABLET PO SCH (22:10)
[2021-05-29] MEDS: lamoTRIgine 100 MG TABLET PO SCH (22:11)
[2021-05-30] MEDS: Ipratropium 1 PUFF INHALER IH SCH ×4 (03:31→21:37)
[2021-05-30] MEDS: *HR* Enoxaparin 40 MG/0.4 ML SYRINGE SQ SCH (06:02)
[2021-05-30 07:20] LABS: Hematocrit 42.3 % (37.5-50.1); Hemoglobin 13.2 g/dL (12.9-16.9); Mean Corpuscular HGB Conc 31.2 g/dL (31.6-35.5); Mean Corpuscular Hemoglobin 28.1 pg (28.0-33.3); Mean Platelet Volume 9.8 fL (9.4-12.4); Platelet Count 377 K/mcL (140-400); Red Cell Distribution Width 12.8 % (11.5-14.5); White Blood Count 13.5 K/mcL (4.3-11.1)
[2021-05-30 07:21] LABS: Eosinophils # 0.3 K/mcL (0.0-0.6)
[2021-05-30 07:41] LABS: BUN/Creatinine Ratio 25 (6-26); Blood Urea Nitrogen 20 mg/dL (8-23); Calcium 8.8 mg/dL (8.6-10.3); Carbon Dioxide 34 mEq/L (23-29); Chloride 97 mEq/L (98-107); Glucose 88 mg/dL (70-105); Osmolality,Calculated 286 (280-300); Potassium 3.9 mEq/L (3.5-5.1); Sodium 137 mEq/L (136-145); eGFR For African Americans > 60 (> 60); eGFR For Non-African Americans > 60 (> 60)
[2021-05-30] MEDS ORDERED: Insulin LISPRO 300 UNITS/3 ML VIAL SUBQ SCH (08:00)
[2021-05-30] MEDS: Cholecalciferol (D-3) 1,000 UNIT (25MCG) TABLET PO SCH (08:15)
[2021-05-30] MEDS: Aspirin Enteric Coated 81 MG Tablet PO SCH (08:16)
[2021-05-30 08:33] LABS: Lymphocytes # 2.2 K/mcL (0.6-4.6); Monocytes # 1.9 K/mcL (0.0-1.3); Neutrophils # 9.2 K/mcL (1.6-8.9)
[2021-05-30 08:34] LABS: Platelet Estimate Normal (Normal); Reactive Lymphocytes Present (Not Present)
[2021-05-30] MEDS ORDERED: Tiotropium 10 INH DOSE IH SCH (09:00)
[2021-05-30] MEDS ORDERED: Dextrose Gel 15 GM/37.5 ML TUBE PO PRN ×2 (09:05)
[2021-05-30] MEDS ORDERED: *HR* Dextrose 50 % in Water (Syg) 50 ML SYRINGE IVP PRN (09:05)
[2021-05-30] MEDS ORDERED: D5% in Water 1,000 ML IVC PRN (09:05)
[2021-05-30] MEDS: Budesonide/Formoterol 160/4.5 1 PUFF INH IH SCH ×2 (09:19→21:36)
[2021-05-30] MEDS: Insulin DETEMIR 100 UNIT/ML X5UNITS SUBQ SCH ×2 (09:47→19:46)
[2021-05-30] MEDS: Insulin LISPRO 300 UNITS/3 ML VIAL SUBQ SCH ×2 (12:00→16:40)
[2021-05-30] MEDS: lamoTRIgine 100 MG TABLET PO SCH (19:47)
[2021-05-30] MEDS: Melatonin 3 MG TABLET PO SCH (19:47)
[2021-05-31] MEDS: Ipratropium 1 PUFF INHALER IH SCH ×4 (03:22→21:18)
[2021-05-31] MEDS: *HR* Enoxaparin 40 MG/0.4 ML SYRINGE SQ SCH (05:12)
[2021-05-31] MEDS: Insulin LISPRO 300 UNITS/3 ML VIAL SUBQ SCH ×3 (07:15→16:48)
[2021-05-31] MEDS: Cholecalciferol (D-3) 1,000 UNIT (25MCG) TABLET PO SCH (08:56)
[2021-05-31] MEDS: Aspirin Enteric Coated 81 MG Tablet PO SCH (08:56)
[2021-05-31] MEDS: Insulin DETEMIR 100 UNIT/ML X5UNITS SUBQ SCH (08:57)
[2021-05-31] MEDS: Budesonide/Formoterol 160/4.5 1 PUFF INH IH SCH ×2 (10:13→21:17)
[2021-05-31] MEDS ORDERED: Insulin DETEMIR 100 UNIT/ML X5UNITS SUBQ SCH (21:00)
[2021-05-31] MEDS: Melatonin 3 MG TABLET PO SCH (21:24)
[2021-05-31] MEDS: lamoTRIgine 100 MG TABLET PO SCH (21:24)
[2021-06-01] MEDS: Ipratropium 1 PUFF INHALER IH SCH ×4 (04:29→22:25)
[2021-06-01] MEDS: *HR* Enoxaparin 40 MG/0.4 ML SYRINGE SQ SCH (05:59)
[2021-06-01] MEDS: Cholecalciferol (D-3) 1,000 UNIT (25MCG) TABLET PO SCH (07:46)
[2021-06-01] MEDS: Aspirin Enteric Coated 81 MG Tablet PO SCH (07:46)
[2021-06-01] MEDS: Insulin LISPRO 300 UNITS/3 ML VIAL SUBQ SCH ×3 (07:47→16:46)
[2021-06-01] MEDS: Insulin DETEMIR 100 UNIT/ML X5UNITS SUBQ SCH ×2 (09:21→21:01)
[2021-06-01] MEDS: Budesonide/Formoterol 160/4.5 1 PUFF INH IH SCH ×2 (10:42→22:25)
[2021-06-01] MEDS: Melatonin 3 MG TABLET PO SCH (21:01)
[2021-06-01] MEDS: lamoTRIgine 100 MG TABLET PO SCH (21:01)
[2021-06-02] MEDS: Ipratropium 1 PUFF INHALER IH SCH ×4 (03:40→22:27)
[2021-06-02] MEDS: *HR* Enoxaparin 40 MG/0.4 ML SYRINGE SQ SCH (05:59)
[2021-06-02] MEDS: Aspirin Enteric Coated 81 MG Tablet PO SCH (08:04)
[2021-06-02] MEDS: Cholecalciferol (D-3) 1,000 UNIT (25MCG) TABLET PO SCH (08:04)
[2021-06-02] MEDS: Insulin LISPRO 300 UNITS/3 ML VIAL SUBQ SCH ×3 (08:05→17:15)
[2021-06-02 09:00] LABS: Estimated Average Glucose 292 mg/dl; Hemoglobin A1C 11.8 %
[2021-06-02] MEDS: Budesonide/Formoterol 160/4.5 1 PUFF INH IH SCH ×2 (09:27→22:27)
[2021-06-02] MEDS: Insulin DETEMIR 100 UNIT/ML X5UNITS SUBQ SCH ×2 (10:23→20:42)
[2021-06-02] MEDS: Melatonin 3 MG TABLET PO SCH (20:42)
[2021-06-02] MEDS: lamoTRIgine 100 MG TABLET PO SCH (20:42)
[2021-06-03] MEDS: Ipratropium 1 PUFF INHALER IH SCH ×4 (04:58→21:40)
[2021-06-03] MEDS: *HR* Enoxaparin 40 MG/0.4 ML SYRINGE SQ SCH (06:21)
[2021-06-03] MEDS: Sennosides 8.6 MG TABLET PO PRN (07:55)
[2021-06-03] MEDS: Aspirin Enteric Coated 81 MG Tablet PO SCH (07:56)
[2021-06-03] MEDS: Cholecalciferol (D-3) 1,000 UNIT (25MCG) TABLET PO SCH (07:56)
[2021-06-03] MEDS: Insulin LISPRO 300 UNITS/3 ML VIAL SUBQ SCH ×4 (07:58→20:21)
[2021-06-03 08:09] LABS: Basophils # 0.1 K/mcL (0.0-0.2); Basophils % 1.1 %; Eosinophils # 0.1 K/mcL (0.0-0.6); Eosinophils % 0.6 %; Hematocrit 37.5 % (37.5-50.1); Hemoglobin 11.8 g/dL (12.9-16.9); Immature Granulocytes % 3.8 % (0-4); Lymphocytes # 1.8 K/mcL (0.6-4.6); Mean Corpuscular HGB Conc 31.5 g/dL (31.6-35.5); Mean Corpuscular Hemoglobin 28.4 pg (28.0-33.3); Mean Corpuscular Volume 90.1 fL (83.0-100.0); Mean Platelet Volume 9.4 fL (9.4-12.4); Monocytes # 1.4 K/mcL (0.0-1.3); Monocytes % 11.1 %; Neutrophils # 8.7 K/mcL (1.6-8.9); Platelet Count 259 K/mcL (140-400); Red Blood Count 4.16 M/mcL (4.19-5.50); Red Cell Distribution Width 12.8 % (11.5-14.5); Segmented Neutrophils % 69.4 %; White Blood Count 12.5 K/mcL (4.3-11.1)
[2021-06-03 08:21] LABS: BUN/Creatinine Ratio 20 (6-26); Blood Urea Nitrogen 16 mg/dL (8-23); Calcium 8.7 mg/dL (8.6-10.3); Carbon Dioxide 31 mEq/L (23-29); Chloride 94 mEq/L (98-107); Glucose 207 mg/dL (70-105); Osmolality,Calculated 275 (280-300); Potassium 4.4 mEq/L (3.5-5.1); Sodium 129 mEq/L (136-145); eGFR For African Americans > 60 (> 60); eGFR For Non-African Americans > 60 (> 60)
[2021-06-03] MEDS: Budesonide/Formoterol 160/4.5 1 PUFF INH IH SCH ×2 (09:20→21:40)
[2021-06-03] MEDS: Insulin DETEMIR 100 UNIT/ML X5UNITS SUBQ SCH ×2 (10:11→20:22)
[2021-06-03] MEDS: Melatonin 3 MG TABLET PO SCH (20:22)
[2021-06-03] MEDS: lamoTRIgine 100 MG TABLET PO SCH (20:22)
[2021-06-04] MEDS: Ipratropium 1 PUFF INHALER IH SCH ×4 (05:14→22:00)
[2021-06-04] MEDS: *HR* Enoxaparin 40 MG/0.4 ML SYRINGE SQ SCH (05:24)
[2021-06-04] MEDS: Sennosides 8.6 MG TABLET PO PRN (07:30)
[2021-06-04] MEDS: Aspirin Enteric Coated 81 MG Tablet PO SCH (07:30)
[2021-06-04] MEDS: Cholecalciferol (D-3) 1,000 UNIT (25MCG) TABLET PO SCH (07:31)
[2021-06-04] MEDS: Insulin LISPRO 300 UNITS/3 ML VIAL SUBQ SCH ×4 (07:37→21:39)
[2021-06-04] MEDS: Insulin DETEMIR 100 UNIT/ML X5UNITS SUBQ SCH ×2 (09:26→21:38)
[2021-06-04] MEDS: Budesonide/Formoterol 160/4.5 1 PUFF INH IH SCH ×2 (09:33→22:01)
[2021-06-04] MEDS: lamoTRIgine 100 MG TABLET PO SCH (21:38)
[2021-06-04] MEDS: Melatonin 3 MG TABLET PO SCH (21:38)
[2021-06-05] MEDS: Ipratropium 1 PUFF INHALER IH SCH ×2 (03:58→10:48)
[2021-06-05] MEDS: *HR* Enoxaparin 40 MG/0.4 ML SYRINGE SQ SCH (05:59)
[2021-06-05 06:47] VITALS: BP 107/71; PULSE 80; RESP 18; TEMP 98.3; O2SAT 95
[2021-06-05] MEDS: Cholecalciferol (D-3) 1,000 UNIT (25MCG) TABLET PO SCH (07:54)
[2021-06-05] MEDS: Aspirin Enteric Coated 81 MG Tablet PO SCH (07:55)
[2021-06-05] MEDS: Insulin LISPRO 300 UNITS/3 ML VIAL SUBQ SCH ×2 (08:26→11:27)
[2021-06-05] MEDS: Insulin DETEMIR 100 UNIT/ML X5UNITS SUBQ SCH (08:27)
[2021-06-05] MEDS: Budesonide/Formoterol 160/4.5 1 PUFF INH IH SCH (10:49)
== END 2021-06-05 12:35 | disposition home health service (06) | DRG 951 ==
LOC: INPPIK 20:51
PROVIDERS: ADMIT Internal Medicine; ATTEND Internal Medicine